=== PATIENT | male | born 1955 | race Caucasian/White ===

== ENCOUNTER 2018-06-05 15:35 | Inpatient (IN) | payer OTHER ==
--- NOTE | 2018-06-05 16:15 | PDOC ---
History of Present Illness - General Chief Complaint: Syncope/Near Syncope Stated Complaint: SYNCOPE Time Seen by Provider: 06/05/18 15:42 History Source: Patient, Family - History of Present Illness Initial Comments: 06/05/18 16:12 62M w/ pmhx of Sjogren's syndrome, lupus, DM, HTN, HLD, RF s/p R kidney transplant (07/15) presents to the ED after 2 syncopal episodes. Pt's also present at bedside to provide history. Pt was at home with physical therapist ( recently had L knee fracture, treated with PT only) and had a syncopal episode during a PT session. Syncopal episode happened while pt was sitting in a chair. noted that pt slumped down in his chair and proceeded to fall onto the ground losing consciousness for 30 seconds. Per , pt woke up after 30 seconds, but lost consciousness again after 5 min for 10 seconds. No witnessed head injury during syncope. Pt does not recall losing consciousness. After second syncopal episode, pt had nausea with 2 episodes of nonbloody, nonbilious vomiting. Admits to chills and severe LLE pain due to knee fracture. Denies headache/dizziness, abdominal pain, tongue biting, urinary/bowel bowel incontinence, blood in urine/stool. BGM taking at home during episode was 130, BP 146/90. Of note, prior to syncopal episodes, pt climbed down flight of stairs during PT session. 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 Recently traveled to the [place] 05/22. Past History - Past Medical History Allergies/Adverse Reactions: Allergies Allergy/AdvReac Type Severity Reaction Status Date / Time Penicillins Allergy Verified 06/05/18 15:53 Home Medications: Ambulatory Orders Amlodipine Besylate 10 mg PO DAILY 06/05/18 Colchicine 0.6 mg PO DAILY 06/05/18 Divalproex [Depakote -] 500 mg PO BID 06/05/18 Ergocalciferol (Vitamin D2) [Vitamin D2] 50,000 unit PO DAILY 06/05/18 Furosemide 40 mg PO BID 06/05/18 Hydralazine HCl 50 mg PO BID 06/05/18 Insulin Aspart [Novolog] 12 unit SQ ASDIR 06/05/18 Insulin Degludec [Tresiba Flextouch U-100] 65 unit SQ HS 06/05/18 Lisinopril 5 mg PO DAILY 06/05/18 Magnesium Oxide [Magnesium] 400 mg PO BID 06/05/18 Metoprolol Tartrate 25 mg PO BID 06/05/18 Mycophenolate Mofetil [Cellcept] 750 mg PO BID 06/05/18 Ranitidine HCl [Zantac] 150 mg PO ASDIR PRN 06/05/18 Simvastatin 20 mg PO DAILY 06/05/18 Sodium Bicarbonate - 10 g PO BID 06/05/18 Tacrolimus [Prograf] 3 mg PO BID 06/05/18 Terazosin HCl [Hytrin] 1 mg PO BID 06/05/18 Anemia: Yes COPD: No Diabetes: Yes HTN: Yes Hypercholesterolemia: Yes Other medical history: schrogrens - Suicide/Smoking/Psychosocial Hx Smoking History: Never smoked Have you smoked in the past 12 months: No Information on smoking cessation initiated: No Hx Alcohol Use: No Drug/Substance Use Hx: No Review of Systems - Review of Systems Able to Perform ROS?: Yes Is the patient limited Mexican proficient: No Constitutional: Yes: Chills. No: Fever, Loss of Appetite HEENTM: No: Recent change in vision Respiratory: No: Cough, Shortness of Breath, SOB with Exertion Cardiac (ROS): No: Chest Pain, Chest Tightness ABD/GI: Yes: Constipated, Nausea, Vomiting. No: Diarrhea, Abdominal cramping Neurological: Yes: Other (lightheadedness). No: Headache *Physical Exam - Vital Signs Last Vital Signs Temp Pulse Resp BP Pulse Ox 97.8 F 61 20 147/103 H 100 06/05/18 15:48 06/05/18 15:48 06/05/18 15:48 06/05/18 15:48 06/05/18 15:48 - Physical Exam General Appearance: Yes: Appropriately Dressed, Apparent Distress (due to L leg pain) HEENT: positive: EOMI, LORENA Respiratory/Chest: positive: Lungs Clear, Normal Breath Sounds. negative: Crackles, Wheezing Cardiovascular: positive: Regular Rhythm, Regular Rate, S1, S2. negative: Murmur Vascular Pulses: Dorsalis-Pedis (R): 2+, Doralis-Pedis (L): 2+ Gastrointestinal/Abdominal: positive: Normal Bowel Sounds, Soft, Other Extremity: positive: Normal Range of Motion (R leg), Tender (generalized tendernesss in LLE), Other (limited ROM in LLE due to pain, L leg brace in place ). negative: Pedal Edema, Swelling Neurologic: positive: log handler II-XII NML intact, Fully Oriented, Alert. negative: Facial Droop ED Treatment Course - LABORATORY CBC & Chemistry Diagram: 06/05/18 16:15 06/05/18 16:22 Medical Decision Making - Medical Decision Making 06/05/18 17:11 Syncopal episode; Ddx includes orthostatic hypotension vs. vasovagal vs. cardiac causes vs. pulm issues vs. PE/DVT vs. infectious process -Will order PTT, PT/INR, cardiac profile, CMP, lactate, Mag, BNP, U/A, CXR, duplex of b/l legs -Pt has been moderately immobile due to knee fracture. Will 06/05/18 17:27 Pt may be orthostatic. BP supine 170/65, sitting 154/71. EKG showed NSR, no ST-T changes, or Q waves. -await CXR and duplex u/s results 06/05/18 18:07 BUN/Cr 55/3.2, Hgb 10.5, Mag 2.5 -Pt is s/p renal transplant (2010), pt states baseline Cr is 1.6, however during recent hospitalization 05/19/18 due to L knee fx, Cr was elevated at 2.8. Spoke with nephr, Dr. Snyder regarding need to transfer to a transplant center for further care. Will call transplant center at [facility] to confirm. 06/05/18 18:59 S/w Kika Roque at transplant center at [facility]. Will call back after speaking to kidney transplant doctor regarding need for transfer to center. Awaiting call back. 06/05/18 19:14 Spoke with transplant center, advised to call pt's assurance senior manager if there is a need to transfer to transplant center for continuation of care since pt's renal transplant was not done at [facility]. Will call Dr. Germain @ [phone]. 06/05/18 19:[address] Valdez, urology fellow of Dr. Germain in [place]. Will d/w attending regarding need to transfer patient to a transplant center. If agreed to admit patient here, will need to order renal u/s, u/a, urine creatinine, urine electrolytes, Prograf level, per request of nephro. Sign out to Dr. Doan. *DC/Admit/Observation/Transfer Diagnosis at time of Disposition: KAMILLA (acute kidney injury), Syncope - Referrals - Patient Instructions - Post Discharge Activity
[2018-06-05] MEDS ORDERED: FAMOTIDINE 20 MG/50 ML IVPB 20 MG/50 ML MG IVPB ONE ×2 (16:23→16:56)
[2018-06-05] MEDS ORDERED: ONDANSETRON 4 MG/2 ML VIAL IVPUSH ONE (16:23)
[2018-06-05] MEDS ORDERED: SODIUM CHLORIDE 0.9% 1000 ML INFUS.BAG IV ONE (16:23)
[2018-06-05] MEDS ORDERED: ACETAMINOPHEN 1000 MG/100 ML VIAL (NON FORMULARY) IVPB ONE (16:25)
[2018-06-05 16:53] LABS: BASO % 0.6 % (0-2.0); HEMATOCRIT 33.1 % (35.4-49); HEMOGLOBIN 10.5 GM/dL (11.7-16.9); LYMPH % 13.8 % (8-40); MCHC 31.8 g/dl (32.0-35.9); MEAN CELL VOLUME 72.2 fl (80-96); MEAN PLT VOLUME 8.5 fl (7.5-11.1); MONO % 6.8 % (3.8-10.2); NEUT % 77.8 % (42.8-82.8); PLATELET COUNT 256 K/MM3 (134-434); RBC 4.58 M/mm3 (4.00-5.60); RDW 17.6 % (11.9-15.9); WHITE BLOOD COUNT 8.7 K/mm3 (4.0-10.0)
[2018-06-05] MEDS ORDERED: ONDANSETRON 4 MG/2 ML VIAL ONE (16:56)
[2018-06-05] MEDS ORDERED: ACETAMINOPHEN INJECTION 100 ML IVPB ONE (16:56)
[2018-06-05 17:15] LABS: INR 1.06 (0.83-1.09); PROTHROMBIN TIME (PATIENT) 12.5 SEC (9.7-13.0)
[2018-06-05 17:17] LABS: ACTIVATED PTT 30.3 SECONDS (25.2-36.5)
--- NOTE | 2018-06-05 17:18 | PDOC ---
Attending Attestation - HPI HPI: 06/05/18 17:33 The patient is a 62-year-old male, with a past medical history of anemia, DM, HTN, HLD, and sjogren's, recent knee fracture, who presents to the ED s/p syncope x2 with an episode of vomiting while at physical therapy today. Patient was sent to the ED for further evaluation. The patient denies any fever, chills, diarrhea, constipation, or abdominal pain. Denies chest pain, shortness of breath, headache and dizziness. Denies dysuria, frequency, urgency, hesitancy, and hematuria. - Physicial Exam PE: 06/05/18 17:34 Constitutional: Awake, alert, oriented. No acute distress. Head: Normocephalic. Atraumatic Eyes: + Known nystagmus. PERRL. EOMI. Conjunctivae are not pale. ENT: Mucous membranes are moist and intact. Posterior pharynx without exudates or erythema. Uvula midline. Neck: Supple. Full ROM. No lymphadenopathy. Cardiovascular: Regular rate. Regular rhythm. S1, S2 regular. Distal pulses are 2+ and symmetric. Pulmonary/Chest: No evidence of respiratory distress. Clear to auscultation bilaterally No wheezing, rales or rhonchi. Abdominal: + Incision on the right lower quadrant from renal transplant. Soft and non-distended. There is no tenderness. No rebound, guarding or rigidity. No organomegaly. No palpable masses. Good bowel sounds. Back: No CVA tenderness. Musculoskeletal: + straight knee brace on the left lower extremity, pain throughout entire left lower extremity. Full ROM on right lower extremity. No edema. No cyanosis. No clubbing. Nocalf tenderness. Radial/pedal pulses are intact and 2+ bilaterally Skin: + Small abrasion over knee cap over recent fracture, no swelling, no warmth. Skin is dry. No petechiae. No purpura. Neurological: Alert and oriented to person, place, and time. Cranial nerves II -XII are grossly intact. Normal speech. Strength is grossly symmetric. No sensory deficits. Psychiatric: Good eye contact. Normal interaction, affect and behavior. <Moira Adams - Last Filed: 06/05/18 17:54> - Resident Resident Name: Sherry Reid - ED Attending Attestation I have performed the following: I have examined & evaluated the patient, The case was reviewed & discussed with the resident, I agree w/resident's findings & plan, Exceptions are as noted - Medical Decision Making 06/05/18 17:12 I, Dr. Guadalupe Schafer DO, attest that this document has been prepared under my direction and personally reviewed by me in its entirety. I further attest, that it accurately reflects all work, treatment, procedures and medical decision -making performed by me. 06/05/18 17:12 a/p: 62yo male with syncope x 2 today -pt c/o feeling dizzy and nauseated prior to syncope x 2 -pt with recent patella fracture on the LLE -pt denies cp/sob -hx of renal transplant in the past -hx of Dm and HTN -pt did not take his BP meds today -pt with acute pain in LE -sensation intact -pt is orthostatic on vitals -will check labs, ekg, cxr, trop, LE duplex ultrasound -will hydrate and re-eval 06/05/18 19:16 pt with kamilla with hx of transplant kidney -resident has discussed with Dr. Snyder who recommends discussing with renal transplant -call placed to [facility] who recommends discussing with the patients private environmental educator 06/06/18 00:32 pt will be admitted and consult to nephrology if Cr and KAMILLA does not improve in 2-3 days, then possible transfer to [facility] for transplant nephrology eval as discussed with the patients environmental educator 06/06/18 00:33 <Guadalupe Schafer - Last Filed: 06/06/18 00:34> Heart Score/ECG Review - ECG Intrepretation Comment:: 06/05/18 17:12 sinus at 67, nl axis, nl interval, no acute st/t wave findings <Guadalupe Schafer - Last Filed: 06/06/18 00:34> Attestations - Attestations 06/05/18 17:34 Documentation prepared by Moira Adams, acting as medical psychotherapist for Guadalupe Schafer DO <Moira Adams - Last Filed: 06/05/18 17:54>
[2018-06-05 17:19] LABS: ALBUMIN 3.4 g/dl (3.4-5.0); ALK PHOS 90 U/L (45-117); ANION GAP 8 MMOL/L (8-16); BILIRUBIN,TOTAL 0.3 mg/dL (0.2-1); BLOOD UREA NITROGEN 55 mg/dL (7-18); CALCIUM 9.5 mg/dL (8.5-10.1); CHLORIDE 111 mmol/L (98-107); CO2 20 mmol/L (21-32); CREATININE 3.2 mg/dL (0.55-1.3); GLUCOSE,RANDOM 121 mg/dL (74-106); MAGNESIUM 2.5 mg/dL (1.8-2.4); POTASSIUM 4.6 mmol/L (3.5-5.1); SGOT/AST 11 U/L (15-37); SGPT/ALT 13 U/L (13-61); SODIUM 139 mmol/L (136-145); TOT PROT 7.3 g/dl (6.4-8.2)
--- NOTE | 2018-06-05 19:58 | PDOC ---
*Physical Exam - Vital Signs Last Vital Signs Temp Pulse Resp BP Pulse Ox 97.8 F 61 20 147/103 H 100 06/05/18 15:48 06/05/18 15:48 06/05/18 15:48 06/05/18 15:48 06/05/18 15:48 - Physical Exam Comments: 06/05/18 21:19 Patient signed out to me by the day team. Briefly, this is a 62 year old male with, Sjogren's syndrome, lupus, DM, HTN, HLD, RF s/p R kidney transplant (07/15) after syncopal episode with acute kidney injury upon admission. Baseline creatinine 1.6, today 3.2. General Appearance: Yes: Appropriately Dressed Respiratory/Chest: positive: Lungs Clear, Normal Breath Sounds. negative: Crackles, Rhonchi, Stridor, Wheezing Cardiovascular: positive: Regular Rhythm, Regular Rate, S1, S2 Gastrointestinal/Abdominal: positive: Normal Bowel Sounds, Flat. negative: Tender Musculoskeletal: positive: Normal Inspection. negative: CVA Tenderness ED Treatment Course - LABORATORY CBC & Chemistry Diagram: 06/05/18 16:15 06/05/18 16:22 - ADDITIONAL ORDERS Additional order review: Laboratory Results 06/05/18 06/05/18 06/05/18 16:22 16:22 16:22 PT with INR 12.50 INR 1.06 PTT (Actin FS) 30.3 Sodium 139 Potassium 4.6 Chloride 111 H Carbon Dioxide 20 L Anion Gap 8 BUN 55 H Creatinine 3.2 H Creat Clearance w eGFR 19.91 Random Glucose 121 H Lactic Acid 1.6 Calcium 9.5 Magnesium 2.5 H Total Bilirubin 0.3 AST 11 L ALT 13 Alkaline Phosphatase 90 Creatine Kinase 39 Troponin I < 0.02 B-Natriuretic Peptide Total Protein 7.3 Albumin 3.4 06/05/18 16:15 PT with INR INR PTT (Actin FS) Sodium Potassium Chloride Carbon Dioxide Anion Gap BUN Creatinine Creat Clearance w eGFR Random Glucose Lactic Acid Calcium Magnesium Total Bilirubin AST ALT Alkaline Phosphatase Creatine Kinase Troponin I B-Natriuretic Peptide 756.1 H Total Protein Albumin 06/05/18 16:15 RBC 4.58 MCV 72.2 L MCHC 31.8 L RDW 17.6 H MPV 8.5 Neutrophils % 77.8 Lymphocytes % 13.8 Monocytes % 6.8 Eosinophils % 1.0 Basophils % 0.6 - Medications Given in the ED: ED Medications Discontinued Medications Generic Name Dose Route Start Last Admin Trade Name Shell PRN Reason Stop Dose Admin Acetaminophen 1,000 mg 06/05/18 16:25 06/05/18 17:05 Ofirmev Injection - IVPB 06/05/18 16:26 1,000 mg ONCE ONE Administration Famotidine/Sodium Chloride 20 mg in 50 mls @ 100 mls/hr 06/05/18 16:23 17:14 Pepcid 20 Mg Premixed Ivpb - IVPB 06/05/18 16:52 100 mls/hr ONCE ONE Administration Ondansetron HCl 4 mg 06/05/18 16:23 06/05/18 17:05 Zofran Injection IVPUSH 06/05/18 16:24 4 mg ONCE ONE Administration Sodium Chloride 1,000 ml 06/05/18 16:23 06/05/18 17:05 Normal Saline - IV 06/05/18 16:24 1,000 ml ONCE ONE Administration Medical Decision Making - Medical Decision Making 06/05/18 21:24 This is a 62 year old male with history of right renal transplant 2010, recent fracture of hi s left knee, who presents with syncope and has acute kidney injury[facility] as per Dr. Valdez, a nephrology fellow, patient should be medically treated here with IVF, follow up sonograms and labs, and if the patient does not improve within 24-48hrs, then they will accept patient under Dr. Stewart. Continue syncope workup; KAMILLA; Admit to hospitalist *DC/Admit/Observation/Transfer Diagnosis at time of Disposition: KAMILLA (acute kidney injury), Syncope - Discharge Dispostion Decision to Admit order: Yes - Referrals - Patient Instructions - Post Discharge Activity
[2018-06-05] MEDS ORDERED: SODIUM CHLORIDE 1,000 ML IV SCH (22:45)
[2018-06-05] MEDS ORDERED: MORPHINE SULFATE 2 MG/ML VIAL IVPUSH ONE (23:39)
[2018-06-06] MEDS ORDERED: MORPHINE SULFATE 2 MG/ML VIAL ONE (00:28)
[2018-06-06 01:18] LABS: URINE APPEARANCE CLEAR; URINE BILIRUBIN NEGATIVE (<2.0 mg/dL); URINE COLOR LTYELLOW; URINE GLUCOSE (UA) NEGATIVE (NEGATIVE); URINE KETONE NEGATIVE (NEGATIVE); URINE LEUK ESTERASE NEGATIVE (NEGATIVE); URINE NITRITE NEGATIVE (NEGATIVE); URINE PROTEIN 2+ (NEGATIVE); URINE UROBILINOGEN NEGATIVE mg/dL (0.2-1.0)
[2018-06-06 01:29] LABS: EPI CELLS RARE /HPF (FEW); URINE MUCUS RARE
[2018-06-06] MEDS ORDERED: RANITIDINE HCL 150 MG TABLET (FP) PO PRN (02:58)
--- NOTE | 2018-06-06 03:13 | PN ---
Teaching Attending Note Name of Resident: Sonali Stewart ATTENDING PHYSICIAN STATEMENT I saw and evaluated the patient. I reviewed the resident's note and discussed the case with the resident. I agree with the resident's findings and plan as documented. SUBJECTIVE: Patient seen and examined; he is a 62 y/o AAM with a complex PMH of Sjogren's syndrome, Lupus, ESRD s/p renal transplant 2010, recent patellar fracture in immobilizer, HTN, HLD, DM. He is hemodynamically stable and afebrile. He has no new complaints aside from knee pain. He comes to the ER via EMS due to fall when working with PT. He was positive for orthostatics while in the ER. He was 'working too hard' per the and syncopized in his chair after exertion. He was noted to have brief LOC without any stigmata of seizures and then return to normal state, though he did have an episode of vomitting after. He has no chest pain, no SOB, no dizziness. No rotational movement. He has had poor PO intake the last several days. For further discussion of the history surrounding this admission please refer to resident note. This is the first time he is documented as being at this facility. I have asked the team to obtain all his old records. Originally, due to the elevated Cr the patient was to be transferred to [facility]. They were called by ER who recommended calling patient's private antique collector. When they were reached (Dr. Germain, ) it was determined by ER and other facility that patient should be admitted to the medicine service with nephrology consult and transfered to a renal xp care facility if no improvement. Patient and are aware and he will be brought to the medicine service. 10 sys ROS done and negative aside from HPI Socially lives with , needs some current assistance with IADLs given his knee problem but is independent otherwise, no alcohol or drug abuse. FH asked and noncontributory PMH and PSH per chart OBJECTIVE: VSS, Labs and Imaging reviewed. Positive orthostatic VS. NAD, resting in bed, no complaints LLE in immobilizer with good pulses and thusly restricted movement; pain to palpation over patellar area NT ND +BS RRR s1/2 no mgr Lungs CTAB with sym exp CN2-12 wnl; couldn't check gait. Motor and sensory are intact. No FNDs. Normal behavior and normal affect Labs reviewed; significant for KAMILLA with Cr. elevated to 3.2 ASSESSMENT AND PLAN: Mr. Woo is a 62 y/o AAM presenting with syncope and knee pain found to have an KAMILLA. He is hemodynamically stable and febrile but does have positive orthostatics. We will work up the cause of his syncope and treat his KAMILLA; if his KAMILLA does not resolve or meaningfully improve in the next 24-48 hours we will have to transfer him to his renal care facility. 1) Acute Kidney Injury on CKD-III (stated) in the setting of ESRD s/p renal XP -His Cr is elevated to 3.2 today and his baseline, per the patient, is 1.6. As discussed in HPI we will admit to medicine with a nephrology consultation. We will monitor him on the floor and empirically hydrate with NS @100 and monitor BMP and UOP -If worsening of renal function will go ahead and discuss emergent xf to [facility] -Hold all nephrotoxic medications (lasix, lisinopril), continue HCO3 tabs -Obtain FeUrea -Nephrology aware of patient; appreciate their input. 2) Syncope -Patient had syncopal episodes at home as documented; +orthostatics so hydrating and rechecking orthostatics in AM -Slightly elevated Well's score (1.5) which is low risk for PE but given his rheum history and recent immobilization will check a D-dimer; negative R leg DVT ; difficult to complete study per the comments but likely negative left leg. Given the history can monitor clinically but if any suspicion persists for DVT check other tests. -Checking an echo, checking dopplers (as the patient has risk factors for sclerosis as well as cardiogenic syncope) -Monitor on telemetry -Neuro checks, serial neuro exams 3) S/P renal transplant -See #1 as this relates to his KAMILLA -Continue his home immunosuppressive regimine and continue with nephrology monitoring -Seen on US on right side 4) Diabetes Mellitus -Hold PO medications, continue home insulin and add SSI 5) Sjogrens, Lupus -Stated history of rheum conditions, no old records -Obtaining old records, not in any acute flair but will monitor -Ensure med list up to date 6) HTN -Hold nephrotoxic BP meds, reintroduce home medications when clinically appropriate -<160 is goal; use PRN management 7) HLD -Nonacute, no change in management 8) Bladder wall thickening seen on US -Could relate to chronic obstruction vs. acute vs. chronic cystitis -No urinary sx, no WBC or fever. UA is negative for UTI. Post void on bladder was <100 -Monitor clinically 9) Cardiomegaly -Appreciated on CXR -Checking echo for #2 which will also help describe this. 10) Obesity (BMI 35) -Nanosystems Engineer when clinically appropriate Full Code Consultants: Nephrology Dispo: Keep inpatient vs. XF to [facility] depending on trajectory of renal function.
[2018-06-06] MEDS: INSULIN ASPART 12 UNIT SQ SCH (03:15)
--- NOTE | 2018-06-06 03:54 | HP ---
CHIEF COMPLAINT: syncope HISTORY OF PRESENT ILLNESS: Patient is a 62 y/o male with a history of sjrogens, lupus, DM, HTN, HLD, RF s/ p renal transplant in 2010 who presents for syncope. On May 19 patient was in an accident and fractured his patella. Yesterday he was seeing PT to help him learn how to walk around his house on crutches with his leg immobilized. He took half a percocet earlier in preperation for the pain. Patient states he also had breakfast. He was tiring of walking around on the crutches, so he went to sit down where he syncopized on the floor. After about a minute he regained consciousness and had an episode of NBNB vomiting. He does not recall any of this happening, they checked his blood sugar after the event and it was found to be 130. Patient has had one syncopal episode in the past but was found to be hypoglycemic at the time. Patient states that since it is difficult to walk in his house he has been drinking less fluids so that he doesn 't have to go to the bathroom. In the ED patient was found to have positive orthostatics. Patient had a renal transplant due to " uncontrolled diabetes". He reports taking his medication daily. Patient reports he still feels nauseous but is also hungry. Patient denies chest pain, denies the room is spinning, shortness of breath, or diarrhea. ED found patients cr to be elevated at 3.2. They spoke with patients frame straightener who said that if the creatine does not resolve within 24-48 hours he should be transferred to [facility]. ER course was notable for: (1) (2) (3) Recent Travel: PAST MEDICAL HISTORY: sjrogens, lupus, DM, HTN, HLD, RF s/p renal transplant PAST SURGICAL HISTORY: R knee replacement Social History: Smoking:denies Alcohol: Drugs: Family History: Allergies Penicillins Allergy (Verified 06/05/18 15:53) HOME MEDICATIONS: Home Medications Medication Instructions Recorded Amlodipine Besylate 10 mg PO DAILY 06/05/18 Colchicine 0.6 mg PO DAILY 06/05/18 Divalproex [Depakote -] 500 mg PO BID 06/05/18 Ergocalciferol (Vitamin D2) 50,000 unit PO DAILY 06/05/18 [Vitamin D2] Furosemide 40 mg PO BID 06/05/18 Hydralazine HCl 50 mg PO BID 06/05/18 Insulin Aspart [Novolog] 12 unit SQ ASDIR 06/05/18 Insulin Degludec [Tresiba 65 unit SQ HS 06/05/18 Flextouch U-100] Lisinopril 5 mg PO DAILY 06/05/18 Magnesium Oxide [Magnesium] 400 mg PO BID 06/05/18 Metoprolol Tartrate 25 mg PO BID 06/05/18 Mycophenolate Mofetil [Cellcept] 750 mg PO BID 06/05/18 Ranitidine HCl [Zantac] 150 mg PO ASDIR PRN 06/05/18 Simvastatin 20 mg PO DAILY 06/05/18 Sodium Bicarbonate - 10 g PO BID 06/05/18 Tacrolimus [Prograf] 3 mg PO BID 06/05/18 Terazosin HCl [Hytrin] 1 mg PO BID 06/05/18 REVIEW OF SYSTEMS CONSTITUTIONAL: Absent: fever, chills, diaphoresis, generalized weakness, malaise, loss of appetite, weight change HEENT: Absent: rhinorrhea, nasal congestion, throat pain, throat swelling, difficulty swallowing, mouth swelling, ear pain, eye pain, visual changes CARDIOVASCULAR: Absent: chest pain, syncope, palpitations, irregular heart rate, lightheadedness , peripheral edema RESPIRATORY: Absent: cough, shortness of breath, dyspnea with exertion, orthopnea, wheezing, stridor, hemoptysis GASTROINTESTINAL:nausea Absent: abdominal pain, abdominal distension, vomiting, diarrhea, constipation , melena, hematochezia GENITOURINARY: Absent: dysuria, frequency, urgency, hesitancy, hematuria, flank pain, genital pain MUSCULOSKELETAL: R knee pain Absent: myalgia, arthralgia, joint swelling, back pain, neck pain SKIN: Absent: rash, itching, pallor HEMATOLOGIC/IMMUNOLOGIC: Absent: easy bleeding, easy bruising, lymphadenopathy, frequent infections ENDOCRINE: Absent: unexplained weight gain, unexplained weight loss, heat intolerance, cold intolerance NEUROLOGIC: dizziness Absent: headache, focal weakness or paresthesias, unsteady gait, seizure, mental status changes, bladder or bowel incontinence PSYCHIATRIC: Absent: anxiety, depression, suicidal or homicidal ideation, hallucinations. PHYSICAL EXAMINATION Vital Signs - 24 hr 06/05/18 15:48 Temperature 97.8 F Pulse Rate 61 Respiratory 20 Rate Blood Pressure 147/103 H O2 Sat by Pulse 100 Oximetry (%) GENERAL: Awake, alert, and fully oriented, in no acute distress. HEAD: Normal with no signs of trauma. EYES: Pupils equal, round and reactive to light, extraocular movements intact, sclera anicteric, conjunctiva clear. EARS, NOSE, THROAT: Moist mucous membranes. LUNGS: Breath sounds equal, clear to auscultation bilaterally. No wheezes, and no crackles. No accessory muscle use. HEART: Regular rate and rhythm, normal S1 and S2 without murmur, rub or gallop. ABDOMEN: Soft, nontender, not distended, normoactive bowel sounds, no guarding, no rebound, no masses. No CVA tenderness MUSCULOSKELETAL:R knee immobilized, tender to touch LOWER EXTREMITIES: 2+ pulses, warm, well-perfused. No calf tenderness. No peripheral edema. NEUROLOGICAL: Cranial nerves II-XII intact. Normal speech. PSYCHIATRIC: Cooperative. Good eye contact. Appropriate mood and affect. SKIN: Warm, dry, normal turgor, no rashes or lesions noted, normal capillary refill. Laboratory Results - last 24 hr CBC, BMP 06/05/18 16:15 06/05/18 16:22 ASSESSMENT/PLAN: Patient is a 62 y/o male with a history of sjrogens, lupus, DM, HTN, HLD, RF s/ p renal transplant in 2010 who presents for syncope. #syncope, likely orthostatic 2/2 to dehydration - + orthostatics - f/u carotid dopplers for stenosis - f/u echo - monitor on tele - neuro checks, serial neuro exams #KAMILLA on CKD III - continue fluids, NS @ 100 - hold furosemide and lisinopril - monitor creatinine - baseline 1.6 - f/u Dr. Snyder, ED spoke with him overnight - f/u FUrea, patient home medications is furosemide #R patellar fracture - 4 mg of morphie given x 1 - f/u PT - Wells score 1.5 - no DVT - f/u DDimer, increased risk of DVT with rheumotologc history #s/p Renal transplant - continue home medications, meds verified with patients - patient follows with frame straightener at [facility] #DM - continue SS - insulin novolog 12 units with meals - BGM achs #HTN - nephrotoxic agents held, hydralazine 50 mg BID continued Visit type - Emergency Visit Emergency Visit: Yes ED Registration Date: 06/05/18 Care time: The patient presented to the Emergency Department on the above date and was hospitalized for further evaluation of their emergent condition. - New Patient This patient is new to me today: Yes Date on this admission: 06/06/18 - Critical Care Critical Care patient: No
[2018-06-06] MEDS ORDERED: HEPARIN NA (PORCINE) 5,000 UNITS/ML 1ML VIAL ONE (06:02)
[2018-06-06] MEDS: HEPARIN NA (PORCINE) 5,000 UNITS/ML 1ML VIAL SQ SCH ×3 (06:10→23:21)
[2018-06-06] MEDS: INSULIN SLIDING SCALE (NOVOLOG) 1 VIAL SQ SCH ×4 (06:30→23:20)
--- NOTE | 2018-06-06 07:31 | PN ---
Progress Note, Physician Chief Complaint: C/O Left knee pain History of Present Illness: 62 y/o male with a history of sjrogens, lupus, DM, HTN, HLD, RF s/p renal transplant in 2010 who presents for syncope. On May 19 patient was in an accident and fractured his patella evluted at [facility] discharged after evaluation by Orthopedics surgery for out patient F/U with Dr Pineda.. Yesterday he was seeing PT to help him learn how to walk around his house on crutches with his leg immobilized. He took half a percocet earlier in preperation for the pain. Patient states he also had breakfast. He was tiring of walking around on the crutches, so he went to sit down where he syncopized on the floor. - Current Medication List Current Medications: Active Medications Acetaminophen (Tylenol -) 650 mg PO Q6H PRN PRN Reason: PAIN LEVEL 6-10 Atorvastatin Calcium (Lipitor -) 10 mg PO HS [facility] Divalproex Sodium (Depakote -) 500 mg PO BID [facility] Ergocalciferol (Drisdol -) 50,000 unit PO DAILY [facility] Heparin Sodium (Porcine) (Heparin -) 5,000 unit SQ TID [facility] Last Admin: 06/06/18 06:10 Dose: 5,000 unit Hydralazine HCl (Apresoline -) 50 mg PO BID [facility] Sodium Chloride (Normal Saline -) 1,000 mls @ 100 mls/hr IV ASDIR [facility] Last Admin: 06/05/18 22:45 Dose: 100 mls/hr Insulin Aspart (Novolog Vial Sliding Scale -) 1 vial SQ ACHS [facility]; Protocol Last Admin: 06/06/18 06:30 Dose: Not Given Magnesium Oxide (Mag-Ox -) 400 mg PO BID [facility] Metoprolol Tartrate (Lopressor -) 25 mg PO BID [facility] Mycophenolate Mofetil (Cellcept -) 750 mg PO BID [facility] Non-Formulary Medication (Insulin Aspart [Novolog]) 12 unit SQ ASDIR [facility] Last Admin: 06/06/18 03:15 Dose: 12 unit Ranitidine HCl (Zantac -) 150 mg PO ASDIR PRN PRN Reason: acid reflux Tacrolimus (Prograf) 3 mg PO BID [facility] Terazosin HCl (Hytrin -) 1 mg PO BID [facility] - Objective Vital Signs: Vital Signs Temperature 98.0 F 06/06/18 03:20 Pulse Rate 62 06/06/18 03:20 Respiratory Rate 18 06/06/18 03:20 Blood Pressure 157/62 06/06/18 03:20 O2 Sat by Pulse Oximetry (%) 99 06/06/18 03:20 Middle aged man not in distress c/o Left knee pain HEENT: mm moist, no anemia, PERRLA EOMI NECK: No JVd No Bruit CHEST: CTA B/L CVS: s1S2 R no m/g/r ABD: No distention non tender Bs + EXT: Left knee in immobilized. Pulses +2 [employer]LYST: AOx3 non focal intact motor and sensory functions. Labs: CBC, BMP 06/05/18 16:15 06/05/18 16:22 INR, PTT INR 1.06 (0.83-1.09) 06/05/18 16:22 - ....Imaging Cat Scan: Report Reviewed (No acute changes) Ultrasound: Report Reviewed (Carotid; atherosclerotic chnages LE: No DVT Renal; Rt sided renal trasplanttaion) EKG: Report Reviewed (NSr at [address] chnages) Problem List - Problems (1) Syncope Assessment/Plan: Most likely combination of orthostatic with neurocardiogenic secondary to pain , normal EKG no chest pain will F/U ECHO , fall precautions PT evaluation after hydration. Code(s): R55 - SYNCOPE AND COLLAPSE (2) H/O kidney transplant Assessment/Plan: Cont all Home modes F/U Nephrology recommondations Code(s): Z94.0 - KIDNEY TRANSPLANT STATUS (3) HTN (hypertension) Assessment/Plan: Well controlled cont home meds Code(s): I10 - ESSENTIAL (PRIMARY) HYPERTENSION (4) Lupus Assessment/Plan: Not on any medicatins Code(s): L93.0 - DISCOID LUPUS ERYTHEMATOSUS (5) Anemia Assessment/Plan: chronic stable Code(s): D64.9 - ANEMIA, UNSPECIFIED (6) CKD (chronic kidney disease) Assessment/Plan: post transplant CKD last Sr Creat 3.[address] [facility] 2wks ago level stayed Code(s): N18.9 - CHRONIC KIDNEY DISEASE, UNSPECIFIED (7) KAMILLA (acute kidney injury) Assessment/Plan: Top on CKD due to dehydration F/U BMP after IV hydration Code(s): N17.9 - ACUTE KIDNEY FAILURE, UNSPECIFIED (8) Dehydration Assessment/Plan: F/U BMP after IV Hydration Code(s): E86.0 - DEHYDRATION (9) T2DM (type 2 diabetes mellitus) Assessment/Plan: F/U Accucheck resume Home meds optimize glycemic control Code(s): E11.9 - TYPE 2 DIABETES MELLITUS WITHOUT COMPLICATIONS (10) D-dimer, elevated Assessment/Plan: Present with syncope D Dimmers highly elevated , Left LE is immobilized , no c/ o chest pain or SOB, Left LE Doppler -ve for DVT patient has H/O Lupus, recently stopped Eliquis 3 months ago 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
[2018-06-06] MEDS ORDERED: hydrALAZINE HCL 50 MG TABLET (FP) PO SCH (10:00)
[2018-06-06] MEDS ORDERED: MAGNESIUM OXIDE 400 MG TABLET (FP) PO SCH (10:00)
[2018-06-06 10:49] LABS: ALBUMIN 3.2 g/dl (3.4-5.0); ALK PHOS 88 U/L (45-117); ANION GAP 11 MMOL/L (8-16); BILIRUBIN,TOTAL 0.3 mg/dL (0.2-1); BLOOD UREA NITROGEN 56 mg/dL (7-18); CALCIUM 8.8 mg/dL (8.5-10.1); CHLORIDE 112 mmol/L (98-107); CO2 21 mmol/L (21-32); CREATININE 3.1 mg/dL (0.55-1.3); GLUCOSE,RANDOM 125 mg/dL (74-106); POTASSIUM 4.7 mmol/L (3.5-5.1); SGOT/AST 11 U/L (15-37); SGPT/ALT 14 U/L (13-61); SODIUM 143 mmol/L (136-145); TOT PROT 6.8 g/dl (6.4-8.2)
--- NOTE | 2018-06-06 10:52 | EKG ---
Test Reason : Blood Pressure : / mmHG Vent. Rate : 067 BPM Atrial Rate : 067 BPM P-R Int : 198 ms QRS Dur : 092 ms QT Int : 418 ms P-R-T Axes : 061 069 073 degrees QTc Int : 441 ms NORMAL SINUS RHYTHM NORMAL ECG NO PREVIOUS ECGS AVAILABLE Confirmed by DEAN DEJESUS MD ([id number]) on 06/06/2018 10:51:33 AM Referred By: Confirmed By:DEAN DEJESUS MD
[2018-06-06 11:07] LABS: BASO % 0.6 % (0-2.0); EOS % 1.9 % (0-4.5); HEMATOCRIT 30.3 % (35.4-49); HEMOGLOBIN 9.7 GM/dL (11.7-16.9); LYMPH % 21.3 % (8-40); MCH 23.1 pg (25.7-33.7); MEAN CELL VOLUME 72.2 fl (80-96); MEAN PLT VOLUME 8.8 fl (7.5-11.1); MONO % 7.8 % (3.8-10.2); NEUT % 68.4 % (42.8-82.8); PLATELET COUNT 241 K/MM3 (134-434); RDW 18.1 % (11.9-15.9); WHITE BLOOD COUNT 6.6 K/mm3 (4.0-10.0)
[2018-06-06] MEDS: hydrALAZINE HCL 50 MG TABLET (FP) PO SCH ×2 (11:29→23:21)
[2018-06-06] MEDS: MYCOPHENOLATE MOFETIL 250 MG CAPSULE PO SCH ×2 (11:30→23:24)
[2018-06-06] MEDS: DIVALPROEX SODIUM 500 MG TABLET E.C. PO SCH ×2 (11:30→23:23)
[2018-06-06] MEDS: METOPROLOL TARTRATE 25 MG TABLET (FP) PO SCH ×2 (11:30→23:34)
[2018-06-06] MEDS: TERAZOSIN HCL 1 MG CAPSULE PO SCH ×2 (11:30→23:24)
[2018-06-06] MEDS: TACROLIMUS ANHYDROUS 1 MG CAPSULE PO SCH ×2 (11:31→23:23)
--- NOTE | 2018-06-06 11:38 | CONSULT ---
Consultation: CONSULT REQUEST: Nephrology Resident Note HISTORY OF PRESENT ILLNESS: 62yo M with history of Lupus, DM, renal failure s/p renal transplant in 2010 in [place] with living donor kidney who presented to the ER after a syncopal episode during his physical therapy. He reports losing consciousness after walking around on crutches. He endorsed one episode of NB/NB vomiting with complete regaining of consciousness post-syncopal event. We were asked to evaluate this pt due to worsening kidney function in a renal transplant pt. Pt reports taking his immunosuppressants as directed (Cellcept, Prograf, and Hytrin ). He states his normal Cr is usually very labile between 1.5 - 3.0 and is followed at [facility] for his outpatient nephrology. Pt has had multiple kidney biopsies due to his lupus, however he reports none of them have been remarkable. He denies any difficulties urinating or any current abdominal pain at this point. PMHx: Sjorgen's syndrome Lupus DM HTN HLD Renal failure s/p renal transplant (2010; [facility]; living donor) PSHx: R Knee replacement SoHx Tobacco: None Alcohol: None Drugs: None Independent in ADLs previously --> now in PT for walking purpose s/p knee replacement; lives with Allergies: Pencillin REVIEW OF SYSTEMS: CONSTITUTIONAL: Absent: fever, chills, diaphoresis, generalized weakness, malaise, loss of appetite, weight change HEENT: Absent: rhinorrhea, nasal congestion, throat pain, throat swelling, difficulty swallowing, mouth swelling, ear pain, eye pain, visual changes CARDIOVASCULAR: Absent: chest pain, syncope, palpitations, irregular heart rate, lightheadedness , peripheral edema RESPIRATORY: Absent: cough, shortness of breath, dyspnea with exertion, orthopnea, wheezing GASTROINTESTINAL: Absent: abdominal pain, abdominal distension, nausea, vomiting, diarrhea, constipation GENITOURINARY: Absent: dysuria, frequency, urgency, hesitancy, hematuria, flank pain MUSCULOSKELETAL: Present: R lower extremity pain Absent: joint swelling, back pain, neck pain SKIN: Absent: rash, itching, pallor NEUROLOGIC: Absent: headache, focal weakness or paresthesias, dizziness, unsteady gait, seizure, mental status changes, bladder or bowel incontinence PSYCHIATRIC: Absent: anxiety, depression PHYSICAL EXAMINATION Vital Signs - 24 hr 06/05/18 06/05/18 06/06/18 15:48 19:15 00:20 Temperature 97.8 F 97.9 F 97.9 F Pulse Rate 61 Pulse Rate [ 72 72 Left Radial] Respiratory 20 18 18 Rate Blood Pressure 147/103 H Blood Pressure 162/70 158/68 [Left Arm] O2 Sat by Pulse 100 98 97 Oximetry (%) 06/06/18 03:20 Temperature 98.0 F Pulse Rate Pulse Rate [ 62 Left Radial] Respiratory 18 Rate Blood Pressure Blood Pressure 157/62 [Left Arm] O2 Sat by Pulse 99 Oximetry (%) GENERAL: NAD, awake, alert, and fully oriented, laying in bed with at bedside HEENT: KIANA, sclera anicteric, MMM NECK: No JVD LUNGS: Breath sounds equal, clear to auscultation bilaterally. No wheezes, and no crackles. No accessory muscle use. HEART: Regular rate and rhythm, normal S1 and S2 without murmur, rub or gallop. ABDOMEN: Soft, RLQ scar without abnormalities, nontender, nondistendend, no guarding, no masses appreciated. MUSCULOSKELETAL: No CVA tenderness. EXTREMITIES: 2+ DP pulses, warm, well-perfused. No peripheral edema. NEUROLOGICAL: Nonfocal exam. Normal speech. Gait not observed PSYCHIATRIC: Cooperative. Good eye contact. Appropriate mood and affect. SKIN: Warm, dry, no rashes Laboratory Results - last 24 hr 06/05/18 06/05/18 06/05/18 00:29 00:29 00:29 WBC RBC Hgb Hct MCV MCH MCHC RDW Plt Count MPV Absolute Neuts (auto) Neutrophils % Lymphocytes % Monocytes % Eosinophils % Basophils % Nucleated RBC % PT with INR INR PTT (Actin FS) D-Dimer Sodium Potassium Chloride Carbon Dioxide Anion Gap BUN Creatinine Creat Clearance w eGFR Random Glucose Lactic Acid Calcium Magnesium Total Bilirubin AST ALT Alkaline Phosphatase Creatine Kinase Troponin I B-Natriuretic Peptide Total Protein Albumin Urine Color Ltyellow Urine Appearance Clear Urine pH 5.0 Ur Specific [place] 1.012 Urine Protein 2+ H Urine Glucose (UA) Negative Urine Ketones Negative Urine Blood Negative Urine Nitrite Negative Urine Bilirubin Negative Urine Urobilinogen Negative Ur Leukocyte Esterase Negative Urine WBC (Auto) <1 Urine RBC (Auto) None Ur Epithelial Cells Rare Urine Mucus Rare Ur Random Sodium 48 Ur Random Potassium 39.0 Ur Random Chloride 58 L Ur Random Urea Nitrogn Urine Creatinine 115.0 H 1106/06/18 06/06/18 09:43 09:43 09:43 WBC 6.6 RBC 4.20 Hgb 9.7 L Hct 30.3 L MCV 72.2 L MCH 23.1 L MCHC 32.0 RDW 18.1 H Plt Count 241 MPV 8.8 Absolute Neuts (auto) 4.5 Neutrophils % 68.4 Lymphocytes % 21.3 D Monocytes % 7.8 Eosinophils % 1.9 D Basophils % 0.6 Nucleated RBC % 0 PT with INR INR PTT (Actin FS) D-Dimer 4186 H Sodium 143 Potassium 4.7 Chloride 112 H Carbon Dioxide 21 Anion Gap 11 BUN 56 H Creatinine 3.1 H Creat Clearance w eGFR 20.66 Random Glucose 125 H Lactic Acid Calcium 8.8 Magnesium Total Bilirubin 0.3 AST 11 L ALT 14 Alkaline Phosphatase 88 Creatine Kinase Troponin I B-Natriuretic Peptide Total Protein 6.8 Albumin 3.2 L Urine Color Urine Appearance Urine pH Ur Specific [place] Urine Protein Urine Glucose (UA) Urine Ketones Urine Blood Urine Nitrite Urine Bilirubin Urine Urobilinogen Ur Leukocyte Esterase Urine WBC (Auto) Urine RBC (Auto) Ur Epithelial Cells Urine Mucus Ur Random Sodium Ur Random Potassium Ur Random Chloride Ur Random Urea Nitrogn Urine Creatinine Active Medications Generic Name Dose Route Start Last Admin Trade Name Freq PRN Reason Stop Dose Admin Acetaminophen 650 mg 06/05/18 22:43 Tylenol - PO Q6H PRN PAIN LEVEL 6-10 Atorvastatin Calcium 10 mg 06/06/18 22:00 Lipitor - PO HS SARY Divalproex Sodium 500 mg 06/06/18 10:00 Depakote - PO BID S[facility] Ergocalciferol 50,000 unit 06/06/18 10:00 Drisdol - PO DAILY [facility] Heparin Sodium (Porcine) 5,000 unit 06/06/18 06:00 06/06/18 06:10 Heparin - SQ 5,000 unit TID S[facility] Administration Hydralazine HCl 50 mg 06/06/18 10:00 Apresoline - PO BID S[facility] Sodium Chloride 1,000 mls @ 100 mls/hr 06/05/18 22:45 06/05/18 22:45 Normal Saline - IV 100 mls/hr ASDIR [facility] Administration Insulin Aspart 1 vial 06/06/18 07:00 06/06/18 06:30 Novolog Vial Sliding Scale - SQ Not Given ACHS [facility] Protocol Magnesium Oxide 400 mg 06/06/18 10:00 Mag-Ox - PO BID [facility] Metoprolol Tartrate 25 mg 06/06/18 10:00 Lopressor - PO BID [facility] Mycophenolate Mofetil 750 mg 06/06/18 10:00 Cellcept - PO BID [facility] Non-Formulary Medication 12 unit 06/06/18 03:00 06/06/18 03:15 Insulin Aspart [Novolog] SQ 12 unit ASDIR [facility] Administration Ranitidine HCl 150 mg 06/06/18 02:58 Zantac - PO ASDIR PRN acid reflux Tacrolimus 3 mg 06/06/18 10:00 Prograf PO BID S[facility] Terazosin HCl 1 mg 06/06/18 10:00 Hytrin - PO BID [facility] ASSESSMENT/PLAN: Acute kidney injury Renal Transplantation Syncopal episode DM HTN HLD Lupus Sjogren's --Urine studies already sent out --Fraction excretion of urea is 30.7 (pre-renal) which coincides with positive orthostatic vital signs --Would continue IVF hydration (NS@100cc/hr) for now --Prograf level pending and will f/u once resolves --Continue pt's immunosuppressant therapy (Hytrin 1mg BID, Prograf 3mg BID, Cellcept 750mg BID) --Monitor Cr --Rest per primary team Dispo: Continue current mgmt. Thank you for this consultative opportunity Case discussed with Dr. Lillian Charles, DO - IM PGY-2 Visit type - Emergency Visit Emergency Visit: Yes ED Registration Date: 06/05/18 Care time: The patient presented to the Emergency Department on the above date and was hospitalized for further evaluation of their emergent condition. - New Patient This patient is new to me today: Yes Date on this admission: 06/06/18 - Critical Care Critical Care patient: No
--- NOTE | 2018-06-06 12:54 | ECHO ---
Name: ROSEMARY BARAJAS, Exam:Adult Echocardiogram Study Date: 06/06/2018 12:02 PM Age: 62 yrs Reason For Study: SYNCOPE Height: 72 in Weight: 261 lb BSA: 2.4 m2 MMode/2D Measurements & Calculations IVSd: 1.5 cm LA dimension: 3.9 cm LVIDd: 4.7 cm LVIDs: 2.6 cm LVPWd: 1.5 cm LVPWs: 2.5 cm EDV(Teich): 103.3 ml ESV(Teich): 24.2 ml Doppler Measurements & Calculations MV E max haja: 86.9 cm/sec Ao V2 max: 163.7 cm/sec MV A max haja: 71.1 cm/sec Ao max P.3 mmHg MV E/A: 1.2 AI P1/2t: 579.1 msec AI max haja: 414.3 cm/sec LV V1 max P.5 mmHg AI max P.7 mmHg LV V1 max: 117.0 cm/sec AI dec slope: 209.6 cm/sec2 PA V2 max: 104.5 cm/sec Med Peak E' Haja: 5.3 cm/sec PA max P.4 mmHg Med E/e': 16.5 Lat Peak E' Haja: 8.7 cm/sec Lat E/e': 10.0 Procedure The study was technically difficult with many images being suboptimal in quality. Left Ventricle There is mild concentric left ventricular hypertrophy. Left ventricular systolic function is grossly normal. Regional wall motion abnormalities cannot be excluded due to limited visualization. Right Ventricle The right ventricle is grossly normal size. The right ventricular systolic function is grossly normal . Atria Normal left and right atrial size and function. Mitral Valve The mitral valve is grossly normal. There is no mitral valve stenosis. Aortic Valve The aortic valve opens well. No hemodynamically significant valvular aortic stenosis. Mild aortic regurgitation. Pulmonic Valve The pulmonic valve is not well seen, but is grossly normal. There is no pulmonic valvular stenosis. Great Vessels The aortic root is normal size. Pericardium/Pleura There is no pericardial effusion. Interpretation Summary The study was technically difficult with many images being suboptimal in quality. Left ventricular systolic function is grossly normal. Regional wall motion abnormalities cannot be excluded due to limited visualization. There is mild concentric left ventricular hypertrophy. Mild aortic regurgitation. There is no pericardial effusion. MD Cedeno *Christine 06/06/2018 12:53 PM
--- NOTE | 2018-06-06 14:14 | PN ---
Teaching Attending Note Name of Resident: Edmar Charles (Nephrology) ATTENDING PHYSICIAN STATEMENT I saw and evaluated the patient. I reviewed the resident's note and discussed the case with the resident. I agree with the resident's findings and plan as documented. Renal Pt is a 62 year old male with pmhx of dm htn and kidney transplant who presents to the ER after a syncopal episode. He denies shortness of breath or chest pain. He had the kidney transplant in 2010 from a living donor. He says that his creatinin ranges between 1.5 and 3. He has had multiple kidney biopsies done in [place] where had had the transplant. He says he feels better today than he did yesterday. He denies dysuria or hematuria. phx dm htn ckd psh kidney transplan allergies pcn family hx denies ros leg pain Current Medications Generic Name Dose Route Start Last Admin Trade Name Freq PRN Reason Stop Dose Admin Acetaminophen 650 mg 06/05/18 22:43 Tylenol - PO Q6H PRN PAIN LEVEL 6-10 Atorvastatin Calcium 10 mg 06/06/18 22:00 Lipitor - PO HS SARY Divalproex Sodium 500 mg 06/06/18 10:00 06/06/18 11:30 Depakote - PO 500 mg BID SARY Administration Ergocalciferol 50,000 unit 06/06/18 10:00 Drisdol - PO DAILY SARY Heparin Sodium (Porcine) 5,000 unit 06/06/18 06:00 06/06/18 06:10 Heparin - SQ 5,000 unit TID SARY Administration Hydralazine HCl 50 mg 06/06/18 10:00 06/06/18 11:29 Apresoline - PO 50 mg BID SARY Administration Sodium Chloride 1,000 mls @ 100 mls/hr 06/05/18 22:45 06/05/18 22:45 Normal Saline - IV 100 mls/hr ASDIR SARY Administration Insulin Aspart 1 vial 06/06/18 07:00 06/06/18 11:39 Novolog Vial Sliding Scale - SQ 4 units ACHS SARY Administration Protocol Magnesium Oxide 400 mg 06/06/18 10:00 06/06/18 11:31 Mag-Ox - PO 400 mg BID SARY Administration Metoprolol Tartrate 25 mg 06/06/18 10:00 06/06/18 11:30 Lopressor - PO 25 mg BID SARY Administration Mycophenolate Mofetil 750 mg 06/06/18 10:00 06/06/18 11:30 Cellcept - PO 750 mg BID SARY Administration Non-Formulary Medication 12 unit 06/06/18 03:00 06/06/18 03:15 Insulin Aspart [Novolog] SQ 12 unit ASDIR SARY Administration Ranitidine HCl 150 mg 06/06/18 02:58 Zantac - PO ASDIR PRN acid reflux Tacrolimus 3 mg 06/06/18 10:00 06/06/18 11:31 Prograf PO 3 mg BID SARY Administration Terazosin HCl 1 mg 06/06/18 10:00 06/06/18 11:30 Hytrin - PO 1 mg BID SARY Administration Laboratory Tests 06/05/18 06/05/18 06/05/18 00:29 16:15 16:22 WBC 8.7 Hgb 10.5 L Creatinine 3.2 H Urine Protein 2+ H Urine Blood Negative 06/06/18 06/06/18 09:43 09:43 WBC 6.6 Hgb 9.7 L Creatinine 3.1 H Urine Protein Urine Blood Last Vital Signs Temp Pulse Resp BP Pulse Ox 98.2 F 63 17 138/59 L 99 06/06/18 12:58 06/06/18 12:58 06/06/18 12:58 06/06/18 12:58 06/06/18 09:00 cxr cardiomegaly kidney ultrasound reviewed cardio s1s2 reg pulm clear GI soft heent oswaldo gu graft soft and non tender, neg bruit ext trace edema skin neg rash heent oswaldo neuro aaox3 psych calm ext pos pulses Impression 1. CKD 2. kidney transplant 3. DM 4. HTN 5. leg fracture 6. HLD 7. 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
[2018-06-06] MEDS: SODIUM CHLORIDE 1,000 ML IV SCH (15:15)
[2018-06-06 19:28] VITALS: BMI 35.3
[2018-06-06] MEDS ORDERED: oxyCODONE HCL 5 MG TABLET PO ONE (20:00)
[2018-06-06] MEDS ORDERED: ERGOCALCIFEROL (VITAMIN D2) 50,000 UNIT CAPSULE (FP) PO SCH (20:15)
[2018-06-06] MEDS ORDERED: INSULIN (NOVOLOG) ASPART 100 UNITS/ML 10ML VIAL ONE (21:54)
[2018-06-06] MEDS ORDERED: PT OWN MED DRAWER 7, Y5N ONE (21:55)
[2018-06-06] MEDS: ATORVASTATIN CA 10 MG TABLET (FP) PO SCH (23:21)
[2018-06-07] MEDS: SODIUM CHLORIDE 1,000 ML IV SCH ×3 (03:14→15:38)
[2018-06-07] MEDS: ACETAMINOPHEN 325 MG TABLET (FP) PO PRN ×2 (04:44→20:11)
[2018-06-07] MEDS: INSULIN SLIDING SCALE (NOVOLOG) 1 VIAL SQ SCH ×4 (06:21→21:09)
[2018-06-07] MEDS: HEPARIN NA (PORCINE) 5,000 UNITS/ML 1ML VIAL SQ SCH ×3 (06:21→21:09)
--- NOTE | 2018-06-07 08:07 | PN ---
Progress Note, Physician Chief Complaint: C/O Left knee pain History of Present Illness: 62 y/o male with a history of sjrogens, lupus, DM, HTN, HLD, RF s/p renal transplant in 2010 who presents for syncope. On May 19 patient was in an accident and fractured his patella evluted at [facility] discharged after evaluation by Orthopedics surgery for out patient F/U with Dr Pineda.. Yesterday he was seeing PT to help him learn how to walk around his house on crutches with his leg immobilized. He took half a percocet earlier in preperation for the pain. Patient states he also had breakfast. He was tiring of walking around on the crutches, so he went to sit down where he syncopized on the floor. - Current Medication List Current Medications: Active Medications Acetaminophen (Tylenol -) 650 mg PO Q6H PRN PRN Reason: PAIN LEVEL 6-10 Last Admin: 06/07/18 04:44 Dose: 650 mg Atorvastatin Calcium (Lipitor -) 10 mg PO HS [facility] Last Admin: 06/06/18 23:21 Dose: 10 mg Divalproex Sodium (Depakote -) 500 mg PO BID [facility] Last Admin: 06/06/18 23:23 Dose: 500 mg Ergocalciferol (Drisdol -) 50,000 unit PO Q30D@1000 [facility] Last Admin: 06/06/18 23:21 Dose: 50,000 unit Heparin Sodium (Porcine) (Heparin -) 5,000 unit SQ TID [facility] Last Admin: 06/07/18 06:21 Dose: 5,000 unit Hydralazine HCl (Apresoline -) 50 mg PO BID [facility] Last Admin: 06/06/18 23:21 Dose: 50 mg Sodium Chloride (Normal Saline -) 1,000 mls @ 83 mls/hr IV ASDIR [facility] Last Admin: 06/07/18 03:14 Dose: 83 mls/hr Insulin Aspart (Novolog Vial Sliding Scale -) 1 vial SQ ACHS [facility]; Protocol Last Admin: 06/07/18 06:21 Dose: 2 units Metoprolol Tartrate (Lopressor -) 25 mg PO BID [facility] Last Admin: 06/06/18 23:34 Dose: 25 mg Mycophenolate Mofetil (Cellcept -) 750 mg PO BID [facility] Last Admin: 06/06/18 23:24 Dose: 750 mg Non-Formulary Medication (Insulin Aspart [Novolog]) 12 unit SQ ASDIR [facility] Last Admin: 06/06/18 03:15 Dose: 12 unit Ranitidine HCl (Zantac -) 150 mg PO DAILY PRN PRN Reason: acid reflux Tacrolimus (Prograf) 3 mg PO BID [facility] Last Admin: 06/06/18 23:23 Dose: 3 mg Terazosin HCl (Hytrin -) 1 mg PO BID [facility] Last Admin: 06/06/18 23:24 Dose: 1 mg - Objective Vital Signs: Vital Signs Temperature 98.5 F 06/07/18 07:56 Pulse Rate 62 06/07/18 07:56 Respiratory Rate 19 06/07/18 07:56 Blood Pressure 152/46 L 06/07/18 07:56 O2 Sat by Pulse Oximetry (%) 98 06/06/18 21:00 Middle aged man not in distress c/o Left knee pain HEENT: mm moist, no anemia, PERRLA EOMI NECK: No JVd No Bruit CHEST: CTA B/L CVS: s1S2 R no m/g/r ABD: No distention non tender Bs + EXT: Left knee in immobilized. Pulses +2 FIXED INCOME ANALYST: AOx3 non focal intact motor and sensory functions. Labs: INR, PTT INR 1.06 (0.83-1.09) 06/05/18 16:22 Problem List - Problems (1) Syncope Assessment/Plan: Most likely combination of orthostatic with neurocardiogenic secondary to pain , normal EKG no chest pain will F/U ECHO , fall precautions PT evaluation after hydration. Code(s): R55 - SYNCOPE AND COLLAPSE (2) H/O kidney transplant Assessment/Plan: Cont all Home modes F/U Nephrology recommondations Code(s): Z94.0 - KIDNEY TRANSPLANT STATUS (3) HTN (hypertension) Assessment/Plan: Well controlled cont home meds Code(s): I10 - ESSENTIAL (PRIMARY) HYPERTENSION (4) Lupus Assessment/Plan: Not on any medicatins Code(s): L93.0 - DISCOID LUPUS ERYTHEMATOSUS (5) Anemia Assessment/Plan: chronic stable Code(s): D64.9 - ANEMIA, UNSPECIFIED (6) CKD (chronic kidney disease) Assessment/Plan: post transplant CKD last Sr Creat 3.[address] [facility] 2wks ago level stayed Code(s): N18.9 - CHRONIC KIDNEY DISEASE, UNSPECIFIED Qualifiers: Chronic kidney disease stage: stage 4 (severe) Qualified Code(s): N18.4 - Chronic kidney disease, stage 4 (severe) (7) KAMILLA (acute kidney injury) Assessment/Plan: Top on CKD due to dehydration F/U BMP after IV hydration Code(s): N17.9 - ACUTE KIDNEY FAILURE, UNSPECIFIED (8) Dehydration Assessment/Plan: F/U BMP after IV Hydration Code(s): E86.0 - DEHYDRATION (9) T2DM (type 2 diabetes mellitus) Assessment/Plan: F/U Accucheck resume Home meds optimize glycemic control Code(s): E11.9 - TYPE 2 DIABETES MELLITUS WITHOUT COMPLICATIONS (10) D-dimer, elevated Assessment/Plan: Present with syncope D Dimmers highly elevated , Left LE is immobilized , no c/ o chest pain or SOB, Left LE Doppler -ve for DVT patient has H/O Lupus, recently stopped Eliquis 3 months ago after 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 Code(s): R79.89 - OTHER SPECIFIED ABNORMAL FINDINGS OF BLOOD CHEMISTRY
[2018-06-07 08:16] LABS: BASO % 0.7 % (0-2.0); EOS % 3.8 % (0-4.5); HEMATOCRIT 27.6 % (35.4-49); HEMOGLOBIN 9.2 GM/dL (11.7-16.9); LYMPH % 39.2 % (8-40); MCH 24.4 pg (25.7-33.7); MCHC 33.6 g/dl (32.0-35.9); MEAN CELL VOLUME 72.7 fl (80-96); MEAN PLT VOLUME 9.2 fl (7.5-11.1); MONO % 7.9 % (3.8-10.2); NEUT % 48.4 % (42.8-82.8); PLATELET COUNT 188 K/MM3 (134-434); RBC 3.79 M/mm3 (4.00-5.60); RDW 18.2 % (11.9-15.9); WHITE BLOOD COUNT 4.8 K/mm3 (4.0-10.0)
[2018-06-07 09:07] LABS: ALK PHOS 83 U/L (45-117); ANION GAP 8 MMOL/L (8-16); BILIRUBIN,TOTAL 0.3 mg/dL (0.2-1); BLOOD UREA NITROGEN 48 mg/dL (7-18); CALCIUM 8.8 mg/dL (8.5-10.1); CHLORIDE 113 mmol/L (98-107); CO2 21 mmol/L (21-32); GLUCOSE,RANDOM 148 mg/dL (74-106); MAGNESIUM 2.5 mg/dL (1.8-2.4); POTASSIUM 4.7 mmol/L (3.5-5.1); SGOT/AST 10 U/L (15-37); SGPT/ALT 13 U/L (13-61); SODIUM 142 mmol/L (136-145); TOT PROT 6.4 g/dl (6.4-8.2)
[2018-06-07] MEDS: METOPROLOL TARTRATE 25 MG TABLET (FP) PO SCH ×2 (09:54→21:09)
[2018-06-07] MEDS: hydrALAZINE HCL 50 MG TABLET (FP) PO SCH ×2 (09:54→21:08)
[2018-06-07] MEDS: DIVALPROEX SODIUM 500 MG TABLET E.C. PO SCH ×2 (09:55→21:09)
[2018-06-07] MEDS: TACROLIMUS ANHYDROUS 1 MG CAPSULE PO SCH ×2 (09:56→21:54)
[2018-06-07] MEDS: TERAZOSIN HCL 1 MG CAPSULE PO SCH ×2 (09:56→21:09)
[2018-06-07] MEDS: MYCOPHENOLATE MOFETIL 250 MG CAPSULE PO SCH ×2 (09:57→21:08)
--- NOTE | 2018-06-07 12:34 | PN ---
Progress Note (short form) - Note Progress Note: RENAL Pt admitted for syncopal episode during PT. He fell 2 weeks ago. Has had other syncopal episodes Had a living unrelated kidney transplant in 2010 He was not feeling well and vomited after waking up He is on several BP meds and states his creatis usually between 1.5 and 3 Had a kidney biopsy in the past but does not know result Says his initial post transplant creat was less than 1 Does not take steroids, colchicine and zantac recently added to his med regimen left arm avf is closed Last Vital Signs Temp Pulse Resp BP Pulse Ox 98.2 F 62 19 158/83 98 06/07/18 09:45 06/07/18 09:45 06/07/18 09:45 06/07/18 09:45 06/06/18 21:00 lungs clear cvs s1s2 rr abd soft ext no edema, flat feet neuro a+ox3 CBC, BMP 06/07/18 07:00 06/07/18 07:00 Current Medications Generic Name Dose Route Start Last Admin Trade Name Freq PRN Reason Stop Dose Admin Acetaminophen 650 mg 06/05/18 22:43 06/07/18 04:44 Tylenol - PO 650 mg Q6H PRN Administration PAIN LEVEL 6-10 Atorvastatin Calcium 10 mg 06/06/18 22:00 06/06/18 23:21 Lipitor - PO 10 mg HS SARY Administration Divalproex Sodium 500 mg 06/06/18 10:00 06/07/18 09:55 Depakote - PO 500 mg BID SARY Administration Ergocalciferol 50,000 unit 06/06/18 20:15 06/06/18 23:21 Drisdol - PO 50,000 unit Q30D@1000 SARY Administration Heparin Sodium (Porcine) 5,000 unit 06/06/18 06:00 06/07/18 06:21 Heparin - SQ 5,000 unit TID SARY Administration Hydralazine HCl 50 mg 06/06/18 10:00 06/07/18 09:54 Apresoline - PO 50 mg BID SARY Administration Sodium Chloride 1,000 mls @ 83 mls/hr 06/06/18 14:17 06/07/18 03:14 Normal Saline - IV 83 mls/hr ASDIR SARY Administration Insulin Aspart 1 vial 06/06/18 07:00 06/07/18 11:23 Novolog Vial Sliding Scale - SQ 4 units ACHS SARY Administration Protocol Metoprolol Tartrate 25 mg 06/06/18 10:00 06/07/18 09:54 Lopressor - PO 25 mg BID SARY Administration Mycophenolate Mofetil 750 mg 06/06/18 10:00 06/07/18 09:57 Cellcept - PO 750 mg BID SARY Administration Non-Formulary Medication 12 unit 06/06/18 03:00 06/06/18 03:15 Insulin Aspart [Novolog] SQ 12 unit ASDIR SARY Administration Ranitidine HCl 150 mg 06/06/18 02:58 Zantac - PO DAILY PRN acid reflux Tacrolimus 3 mg 06/06/18 10:00 06/07/18 09:56 Prograf PO 3 mg BID SARY Administration Terazosin HCl 1 mg 06/06/18 10:00 06/07/18 09:56 Hytrin - PO 1 mg BID SARY Administration IMPRESSION 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 Note pt is on terazosin which is associated with orthostatic hypotension s/p kidney transplant PLAN would do a 24 hour ambulatory BP monitor monitor BP, would keep above 130 tacro level check orthostatics monitor renal function MV
--- NOTE | 2018-06-07 14:11 | CON.PULM ---
Consult Consult Specialty:: PULMONARY Referred by:: DEBORAH Reason for Consultation:: R/O PE - History of Present Illness Chief Complaint: SYNCOPE History of Present Illness: 62M w/ pmhx of Sjogren's syndrome, lupus, DM, HTN, HLD, RF s/p R kidney transplant (07/15) presents to the ED after 2 syncopal episodes. Pt's also present at bedside to provide history. Pt was at home with physical therapist ( recently had L knee fracture, treated with PT only) and had a syncopal episode during a PT session. Syncopal episode happened while pt was sitting in a chair. noted that pt slumped down in his chair and proceeded to fall onto the floor losing consciousness for 30 seconds. Per , pt woke up after 30 seconds , but lost consciousness again after 5 min for 10 seconds. No witnessed head injury during syncope. Pt does not recall losing consciousness. After second syncopal episode, pt had nausea with 2 episodes of nonbloody, nonbilious vomiting. Admits to chills and severe LLE pain due to knee fracture. Denies headache/dizziness, abdominal pain, tongue biting, urinary/bowel bowel incontinence, blood in urine.Patient admits compliance to all meds. 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 No: AFIB Pulmonary: No: Asthma, COPD Gastrointestinal: No: Ascites Hepatobiliary: No: Cirrhosis Renal/: Yes: Renal Failure, Hemodialysis, Other (s/p kidney transplant) Heme/Onc: Yes: Anemia Infectious Disease: No: AIDS Psych: No: Addictions Musculoskeletal: Yes: Other (left patellar fracture). No: Bursitis Rheumatology: Yes: Lupus, Other (sjogren's syndrome) Endocrine: Yes: Diabetes Mellitus - Past Surgical History Past Surgical History: Yes: Kidney Transplant - Alcohol/Substance Use Hx Alcohol Use: No History of Substance Use: reports: None - Smoking History Smoking history: Never smoked Have you smoked in the past 12 months: No - Social History Usual Living Arrangement: With Spouse ADL: Independent History of Recent Travel: Yes Home Medications - Allergies Allergies/Adverse Reactions: Allergies Allergy/AdvReac Type Severity Reaction Status Date / Time Penicillins Allergy Verified 06/05/18 15:53 - Home Medications Home Medications: Ambulatory Orders Amlodipine Besylate 10 mg PO DAILY 06/05/18 Colchicine 0.6 mg PO DAILY 06/05/18 Divalproex [Depakote -] 500 mg PO BID 06/05/18 Ergocalciferol (Vitamin D2) [Vitamin D2] 50,000 unit PO DAILY 06/05/18 Furosemide 40 mg PO BID 06/05/18 Hydralazine HCl 50 mg PO BID 06/05/18 Insulin Aspart [Novolog] 12 unit SQ ASDIR 06/05/18 Insulin Degludec [Tresiba Flextouch U-100] 65 unit SQ HS 06/05/18 Lisinopril 5 mg PO DAILY 06/05/18 Magnesium Oxide [Magnesium] 400 mg PO BID 06/05/18 Metoprolol Tartrate 25 mg PO BID 06/05/18 Mycophenolate Mofetil [Cellcept] 750 mg PO BID 06/05/18 Ranitidine HCl [Zantac] 150 mg PO ASDIR PRN 06/05/18 Simvastatin 20 mg PO DAILY 06/05/18 Sodium Bicarbonate - 10 g PO BID 06/05/18 Tacrolimus [Prograf] 3 mg PO BID 06/05/18 Terazosin HCl [Hytrin] 1 mg PO BID 06/05/18 Family Disease History - Family Disease History Family History: Unremarkable Review of Systems - Review of Systems Constitutional: reports: Lethargy, Malaise. denies: Fever Eyes: denies: Blurred Vision HENT: denies: Difficult Swallowing Neck: denies: Decreased ROM Cardiovascular: denies: Chest Pain Respiratory: reports: Exercise Intolerance. denies: Cough, Hemoptysis, Orthopnea, Wheezing Gastrointestinal: denies: Abdominal Pain Genitourinary: denies: Burning Breasts: reports: No Symptoms Reported Musculoskeletal: reports: Joint Pain Integumentary: reports: No Symptoms Neurological: reports: Syncope Endocrine: reports: No Symptoms Hematology/Lymphatic: reports: No Symptoms Psychiatric: reports: No Symptoms Physical Exam Vital Sings: Vital Signs Temperature 98.2 F 06/07/18 09:45 Pulse Rate 62 06/07/18 09:45 Respiratory Rate 19 06/07/18 09:45 Blood Pressure 158/83 06/07/18 09:45 O2 Sat by Pulse Oximetry (%) 98 06/06/18 21:00 Constitutional: Yes: Calm Eyes: Yes: EOM Intact HENT: Yes: Normocephalic Neck: Yes: Trachea Midline Cardiovascular: Yes: Regular Rate and Rhythm Respiratory: Yes: CTA Bilaterally Gastrointestinal: Yes: Normal Bowel Sounds, Abdomen, Obese Extremities: Yes: Other (left patellar fracture) Integumentary: Yes: WNL Neurological: Yes: WNL ...Motor Strength: RLE Psychiatric: Yes: WNL Labs: CBC, BMP 06/07/18 07:00 06/07/18 07:00 rest reviewed Imaging - Results Chest X-ray: Report Reviewed, Image Reviewed Ultrasound: Report Reviewed Problem List - Problems (1) Anemia Code(s): D64.9 - ANEMIA, UNSPECIFIED (2) D-dimer, elevated Code(s): R79.89 - OTHER SPECIFIED ABNORMAL FINDINGS OF BLOOD CHEMISTRY (3) Dehydration Code(s): E86.0 - DEHYDRATION (4) H/O kidney transplant Code(s): Z94.0 - KIDNEY TRANSPLANT STATUS (5) HTN (hypertension) Code(s): I10 - ESSENTIAL (PRIMARY) HYPERTENSION (6) Lupus Code(s): L93.0 - DISCOID LUPUS ERYTHEMATOSUS (7) Syncope Code(s): R55 - SYNCOPE AND COLLAPSE (8) CKD (chronic kidney disease) Code(s): N18.9 - CHRONIC KIDNEY DISEASE, UNSPECIFIED (9) T2DM (type 2 diabetes mellitus) Code(s): E11.9 - TYPE 2 DIABETES MELLITUS WITHOUT COMPLICATIONS Assessment/Plan PATIENT HAS MULTIPLE REASONS TO HAVE AN ELEVATED D-DIMER RENAL FAILURE RECENT FALL RECENT PATELLAR FRACTURE MY INDEX OF SUSPICION FOR PE IS LOW HOWEVER ALL OF THE ABOVE COUPLED WITH HIS RECENT SEDENTARY SITUATION POST PATELLAR FRACTURE CAN INCREASE HIS RISK FOR PE WOULD SUGGEST V/Q SCAN ON SATURDAY TO R/O PE UNABLE TO ORDER CTA DUE TO HIS CHRONIC KIDNEY DISEASE MAY CONSIDER INCREASING IV FLUID RATE PATIENT IS NOT EATING AND HYDRATING ADEQUATELY WILL FOLLOW Aguilar MARTINEZ MD
[2018-06-07] MEDS ORDERED: PT OWN MED DRAWER 7, Y5N ONE (20:34)
[2018-06-07] MEDS: ATORVASTATIN CA 10 MG TABLET (FP) PO SCH (21:09)
[2018-06-08] MEDS: SODIUM CHLORIDE 1,000 ML IV SCH ×3 (01:05→13:12)
[2018-06-08] MEDS: ACETAMINOPHEN 325 MG TABLET (FP) PO PRN (02:25)
[2018-06-08] MEDS: HEPARIN NA (PORCINE) 5,000 UNITS/ML 1ML VIAL SQ SCH ×3 (06:01→21:22)
[2018-06-08] MEDS: INSULIN SLIDING SCALE (NOVOLOG) 1 VIAL SQ SCH ×4 (06:01→21:20)
[2018-06-08 07:34] LABS: BASO % 0.7 % (0-2.0); EOS % 3.4 % (0-4.5); HEMATOCRIT 27.9 % (35.4-49); HEMOGLOBIN 9.4 GM/dL (11.7-16.9); LYMPH % 38.4 % (8-40); MCH 24.5 pg (25.7-33.7); MCHC 33.8 g/dl (32.0-35.9); MEAN CELL VOLUME 72.5 fl (80-96); MONO % 6.2 % (3.8-10.2); NEUT % 51.3 % (42.8-82.8); PLATELET COUNT 204 K/MM3 (134-434); RBC 3.85 M/mm3 (4.00-5.60); RDW 17.8 % (11.9-15.9); WHITE BLOOD COUNT 5.6 K/mm3 (4.0-10.0)
--- NOTE | 2018-06-08 08:03 | PN ---
Progress Note, Physician Chief Complaint: C/O Left knee pain History of Present Illness: 62 y/o male with a history of sjrogens, lupus, DM, HTN, HLD, RF s/p renal transplant in 2010 who presents for syncope. On May 19 patient was in an accident and fractured his patella evluted at [facility] discharged after evaluation by Orthopedics surgery for out patient F/U with Dr Pineda.. Yesterday he was seeing PT to help him learn how to walk around his house on crutches with his leg immobilized. He took half a percocet earlier in preperation for the pain. Patient states he also had breakfast. He was tiring of walking around on the crutches, so he went to sit down where he syncopized on the floor. - Current Medication List Current Medications: Active Medications Acetaminophen (Tylenol -) 650 mg PO Q6H PRN PRN Reason: PAIN LEVEL 6-10 Last Admin: 06/08/18 02:25 Dose: 650 mg Atorvastatin Calcium (Lipitor -) 10 mg PO HS [facility] Last Admin: 06/07/18 21:09 Dose: 10 mg Divalproex Sodium (Depakote -) 500 mg PO BID [facility] Last Admin: 06/07/18 21:09 Dose: 500 mg Ergocalciferol (Drisdol -) 50,000 unit PO Q30D@1000 [facility] Last Admin: 06/06/18 23:21 Dose: 50,000 unit Heparin Sodium (Porcine) (Heparin -) 5,000 unit SQ TID [facility] Last Admin: 06/08/18 06:01 Dose: 5,000 unit Hydralazine HCl (Apresoline -) 50 mg PO BID [facility] Last Admin: 06/07/18 21:08 Dose: 50 mg Sodium Chloride (Normal Saline -) 1,000 mls @ 100 mls/hr IV ASDIR [facility] Last Admin: 06/08/18 01:05 EST Dose: 100 mls/hr Insulin Aspart (Novolog Vial Sliding Scale -) 1 vial SQ ACHS [facility]; Protocol Last Admin: 06/08/18 06:01 Dose: 2 units Metoprolol Tartrate (Lopressor -) 25 mg PO BID [facility] Last Admin: 06/07/18 21:09 Dose: 25 mg Mycophenolate Mofetil (Cellcept -) 750 mg PO BID [facility] Last Admin: 06/07/18 21:08 Dose: 750 mg Non-Formulary Medication (Insulin Aspart [Novolog]) 12 unit SQ ASDIR [facility] Last Admin: 06/06/18 03:15 Dose: 12 unit Ranitidine HCl (Zantac -) 150 mg PO DAILY PRN PRN Reason: acid reflux Tacrolimus (Prograf) 3 mg PO BID [facility] Last Admin: 06/07/18 21:54 Dose: 3 mg Terazosin HCl (Hytrin -) 1 mg PO BID [facility] Last Admin: 06/07/18 21:09 Dose: 1 mg - Objective Vital Signs: Vital Signs Temperature 98.7 F 06/07/18 20:08 Pulse Rate 66 06/08/18 06:37 Respiratory Rate 18 06/08/18 06:37 Blood Pressure 125/72 06/08/18 06:37 O2 Sat by Pulse Oximetry (%) 98 06/07/18 21:00 Middle aged man not in distress c/o Left knee pain HEENT: mm moist, no anemia, PERRLA EOMI NECK: No JVd No Bruit CHEST: CTA B/L CVS: s1S2 R no m/g/r ABD: No distention non tender Bs + EXT: Left knee in immobilized. 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 Labs: CBC, BMP 06/08/18 06:00 INR, PTT INR 1.06 (0.83-1.09) 06/05/18 16:22 Problem List - Problems (1) Syncope Assessment/Plan: Most likely combination of orthostatic with neurocardiogenic secondary to pain , normal EKG no chest pain will F/U ECHO , fall precautions PT evaluation after hydration. Code(s): R55 - SYNCOPE AND COLLAPSE (2) H/O kidney transplant Assessment/Plan: Cont all Home modes F/U Nephrology recommondations Code(s): Z94.0 - KIDNEY TRANSPLANT STATUS (3) HTN (hypertension) Assessment/Plan: Well controlled cont home meds Code(s): I10 - ESSENTIAL (PRIMARY) HYPERTENSION (4) Lupus Assessment/Plan: Not on any medicatins Code(s): L93.0 - DISCOID LUPUS ERYTHEMATOSUS (5) Anemia Assessment/Plan: chronic stable Code(s): D64.9 - ANEMIA, UNSPECIFIED (6) CKD (chronic kidney disease) Assessment/Plan: post transplant CKD last Sr Creat 3.1 in January 2018 [facility] 2wks ago level stayed Code(s): N18.9 - CHRONIC KIDNEY DISEASE, UNSPECIFIED Qualifiers: Chronic kidney disease stage: stage 4 (severe) Qualified Code(s): N18.4 - Chronic kidney disease, stage 4 (severe) (7) KAMILLA (acute kidney injury) Assessment/Plan: Top on CKD due to dehydration F/U BMP after IV hydration Code(s): N17.9 - ACUTE KIDNEY FAILURE, UNSPECIFIED (8) Dehydration Assessment/Plan: F/U BMP after IV Hydration Code(s): E86.0 - DEHYDRATION (9) T2DM (type 2 diabetes mellitus) Assessment/Plan: F/U Accucheck resume Home meds optimize glycemic control Code(s): E11.9 - TYPE 2 DIABETES MELLITUS WITHOUT COMPLICATIONS (10) D-dimer, elevated Assessment/Plan: Present with syncope D Dimmers highly elevated , Left LE is immobilized , no c/ o chest pain or SOB, Left LE Doppler -ve for DVT patient has H/O Lupus, recently stopped Eliquis 3 months ago after 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 Code(s): R79.89 - OTHER SPECIFIED ABNORMAL FINDINGS OF BLOOD CHEMISTRY
[2018-06-08 08:04] LABS: ANION GAP 9 MMOL/L (8-16); BLOOD UREA NITROGEN 38 mg/dL (7-18); CALCIUM 8.5 mg/dL (8.5-10.1); CHLORIDE 114 mmol/L (98-107); CO2 19 mmol/L (21-32); CREATININE 2.7 mg/dL (0.55-1.3); GLUCOSE,RANDOM 133 mg/dL (74-106); POTASSIUM 4.7 mmol/L (3.5-5.1); SODIUM 143 mmol/L (136-145)
[2018-06-08] MEDS ORDERED: oxyCODONE HCL 5 MG TABLET PO PRN (09:10)
[2018-06-08] MEDS ORDERED: DOCUSATE SODIUM 100 MG CAPSULE (FP) PO PRN (09:12)
[2018-06-08] MEDS ORDERED: oxyCODONE HCL 5 MG TABLET ONE (10:21)
[2018-06-08] MEDS: METOPROLOL TARTRATE 25 MG TABLET (FP) PO SCH ×2 (10:26→21:23)
[2018-06-08] MEDS: TERAZOSIN HCL 1 MG CAPSULE PO SCH ×2 (10:26→21:22)
[2018-06-08] MEDS: hydrALAZINE HCL 50 MG TABLET (FP) PO SCH ×2 (10:26→21:21)
[2018-06-08] MEDS: TACROLIMUS ANHYDROUS 1 MG CAPSULE PO SCH ×2 (10:27→21:23)
[2018-06-08] MEDS: MYCOPHENOLATE MOFETIL 250 MG CAPSULE PO SCH ×2 (10:27→21:22)
[2018-06-08] MEDS: DIVALPROEX SODIUM 500 MG TABLET E.C. PO SCH ×2 (10:35→21:22)
[2018-06-08] MEDS ORDERED: INSULIN (NOVOLOG) ASPART 100 UNITS/ML 10ML VIAL ONE (11:01)
--- NOTE | 2018-06-08 11:26 | PN ---
Progress Note (short form) - Note Progress Note: RENAL feels well asking when he can be discharged Last Vital Signs Temp Pulse Resp BP Pulse Ox 97.7 F 72 18 158/84 98 06/08/18 10:00 06/08/18 10:00 06/08/18 10:00 06/08/18 10:00 06/07/18 21:00 lungs clear cvs s1s2 rr abd soft ext no edema, flat feet neuro a+ox3 CBC, BMP 06/08/18 06:00 06/08/18 06:00 Current Medications Generic Name Dose Route Start Last Admin Trade Name Freq PRN Reason Stop Dose Admin Acetaminophen 650 mg 06/08/18 09:12 Tylenol - PO Q6H PRN PAIN Atorvastatin Calcium 10 mg 06/06/18 22:00 06/07/18 21:09 Lipitor - PO 10 mg HS SARY Administration Colchicine 0.6 mg 06/08/18 10:00 Colcrys - PO DAILY SARY Divalproex Sodium 500 mg 06/06/18 10:00 06/08/18 10:35 Depakote - PO 500 mg BID SARY Administration Docusate Sodium 100 mg 06/08/18 09:12 Colace - PO BID PRN CONSTIPATION Ergocalciferol 50,000 unit 06/06/18 20:15 06/06/18 23:21 Drisdol - PO 50,000 unit Q30D@1000 SARY Administration Heparin Sodium (Porcine) 5,000 unit 06/06/18 06:00 06/08/18 06:01 Heparin - SQ 5,000 unit TID SARY Administration Hydralazine HCl 50 mg 06/06/18 10:00 06/08/18 10:26 Apresoline - PO 50 mg BID SARY Administration Sodium Chloride 1,000 mls @ 100 mls/hr 06/07/18 15:06 06/08/18 10:25 Normal Saline - IV 100 mls/hr ASDIR SARY Administration Insulin Aspart 1 vial 06/06/18 07:00 06/08/18 11:05 Novolog Vial Sliding Scale - SQ 4 units ACHS SARY Administration Protocol Metoprolol Tartrate 25 mg 06/06/18 10:00 06/08/18 10:26 Lopressor - PO 25 mg BID SARY Administration Mycophenolate Mofetil 750 mg 06/06/18 10:00 06/08/18 10:27 Cellcept - PO 750 mg BID SARY Administration Non-Formulary Medication 12 unit 06/06/18 03:00 06/06/18 03:15 Insulin Aspart [Novolog] SQ 12 unit ASDIR SARY Administration Oxycodone HCl 5 mg 06/08/18 09:10 06/08/18 10:29 Roxicodone - PO 5 mg Q8H PRN Administration PAIN LEVEL 6-10 Ranitidine HCl 150 mg 06/06/18 02:58 Zantac - PO DAILY PRN acid reflux Tacrolimus 3 mg 06/06/18 10:00 06/08/18 10:27 Prograf PO 3 mg BID SARY Administration Terazosin HCl 1 mg 06/06/18 10:00 06/08/18 10:26 Hytrin - PO 1 mg BID SARY Administration IMPRESSION 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 His BP fluctuates. Note pt is on terazosin which is associated with orthostatic hypotension s/p kidney transplant PLAN would do a 24 hour ambulatory BP monitor- as outpatient would restart heather inhibitor and discontinue terazosin should use his compression stockings since he has had several falls and maybe having pooling of blood tacro level check orthostatics monitor renal function would consider tilt table testing MV
[2018-06-08] MEDS ORDERED: PT OWN MED DRAWER 7, Y5N ONE ×2 (13:01→20:26)
[2018-06-08] MEDS: COLCHICINE 0.6 MG TABLET (FP) PO SCH (13:11)
--- NOTE | 2018-06-08 14:23 | PN ---
Progress Note (short form) - Note Progress Note: PULMONARY VSS/AFEBRILE ANICTERIC DISTANT BUT CLEAR B/L BREATH SOUNDS S1S2 BS+ NONTENDER LEFT PATELLAR FRACTURE LABS/MEDS/NOTES/IMAGES REVIEWED AWAITING V/Q SATURDAY R JUAN QUIGLEY Problem List - Problems (1) Anemia Code(s): D64.9 - ANEMIA, UNSPECIFIED (2) D-dimer, elevated Code(s): R79.89 - OTHER SPECIFIED ABNORMAL FINDINGS OF BLOOD CHEMISTRY (3) Dehydration Code(s): E86.0 - DEHYDRATION (4) H/O kidney transplant Code(s): Z94.0 - KIDNEY TRANSPLANT STATUS (5) HTN (hypertension) Code(s): I10 - ESSENTIAL (PRIMARY) HYPERTENSION (6) Lupus Code(s): L93.0 - DISCOID LUPUS ERYTHEMATOSUS (7) Syncope Code(s): R55 - SYNCOPE AND COLLAPSE (8) CKD (chronic kidney disease) Code(s): N18.9 - CHRONIC KIDNEY DISEASE, UNSPECIFIED Qualifiers: Chronic kidney disease stage: stage 4 (severe) Qualified Code(s): N18.4 - Chronic kidney disease, stage 4 (severe) (9) T2DM (type 2 diabetes mellitus) Code(s): E11.9 - TYPE 2 DIABETES MELLITUS WITHOUT COMPLICATIONS
[2018-06-08] MEDS ORDERED: ONDANSETRON 4 MG/2 ML VIAL IVPUSH ONE (17:00)
[2018-06-08] MEDS: ATORVASTATIN CA 10 MG TABLET (FP) PO SCH (21:23)
[2018-06-09] MEDS: INSULIN SLIDING SCALE (NOVOLOG) 1 VIAL SQ SCH ×4 (06:14→21:39)
[2018-06-09] MEDS: HEPARIN NA (PORCINE) 5,000 UNITS/ML 1ML VIAL SQ SCH ×3 (06:16→21:38)
[2018-06-09] MEDS: SODIUM CHLORIDE 1,000 ML IV SCH (06:17)
[2018-06-09 07:18] LABS: BASO % 0.5 % (0-2.0); EOS % 2.5 % (0-4.5); HEMATOCRIT 27.1 % (35.4-49); HEMOGLOBIN 9.2 GM/dL (11.7-16.9); LYMPH % 31.4 % (8-40); MCH 24.8 pg (25.7-33.7); MCHC 34.1 g/dl (32.0-35.9); MEAN CELL VOLUME 72.8 fl (80-96); MEAN PLT VOLUME 8.8 fl (7.5-11.1); MONO % 7.8 % (3.8-10.2); NEUT % 57.8 % (42.8-82.8); PLATELET COUNT 187 K/MM3 (134-434); RBC 3.72 M/mm3 (4.00-5.60); RDW 17.8 % (11.9-15.9); WHITE BLOOD COUNT 5.7 K/mm3 (4.0-10.0)
[2018-06-09 07:47] LABS: ANION GAP 9 MMOL/L (8-16); BLOOD UREA NITROGEN 35 mg/dL (7-18); CALCIUM 8.5 mg/dL (8.5-10.1); CHLORIDE 115 mmol/L (98-107); CO2 20 mmol/L (21-32); CREATININE 2.6 mg/dL (0.55-1.3); GLUCOSE,RANDOM 135 mg/dL (74-106); POTASSIUM 4.6 mmol/L (3.5-5.1); SODIUM 143 mmol/L (136-145)
[2018-06-09] MEDS ORDERED: PT OWN MED DRAWER 7, Y5N ONE ×2 (09:18→21:13)
[2018-06-09] MEDS: DIVALPROEX SODIUM 500 MG TABLET E.C. PO SCH ×2 (09:20→21:38)
[2018-06-09] MEDS: hydrALAZINE HCL 50 MG TABLET (FP) PO SCH ×2 (09:20→21:38)
[2018-06-09] MEDS: COLCHICINE 0.6 MG TABLET (FP) PO SCH (09:20)
[2018-06-09] MEDS: ONDANSETRON 4 MG/2 ML VIAL IVPUSH PRN (09:20)
[2018-06-09] MEDS: METOPROLOL TARTRATE 25 MG TABLET (FP) PO SCH ×2 (09:20→21:39)
[2018-06-09] MEDS: TACROLIMUS ANHYDROUS 1 MG CAPSULE PO SCH ×2 (09:21→21:40)
[2018-06-09] MEDS: TERAZOSIN HCL 1 MG CAPSULE PO SCH ×2 (09:21→21:39)
[2018-06-09] MEDS: MYCOPHENOLATE MOFETIL 250 MG CAPSULE PO SCH ×2 (09:30→21:38)
[2018-06-09] MEDS: ACETAMINOPHEN 325 MG TABLET (FP) PO PRN ×2 (10:25→17:25)
--- NOTE | 2018-06-09 11:09 | PN ---
Progress Note (short form) - Note Progress Note: PULMONARY Denies shortness of breath, chest pain or palpitations. Feels dizzy. Vital Signs Period Temp Pulse Resp BP Sys/South Pulse Ox Last 24 Hr 97.7 F-99.0 F 59-74 18-20 119-167/59-85 97 Gen: NAD at rest Heart: RRR Lung: decreased breath sounds at the bases Abd: soft, nontender Ext: no edema CBC, BMP 06/09/18 07:00 06/09/18 07:00 Active Medications Acetaminophen (Tylenol -) 650 mg PO Q6H PRN PRN Reason: PAIN Last Admin: 06/09/18 10:25 Dose: 650 mg Atorvastatin Calcium (Lipitor -) 10 mg PO HS [facility] Last Admin: 06/08/18 21:23 Dose: 10 mg Colchicine (Colcrys -) 0.6 mg PO DAILY [facility] Last Admin: 06/09/18 09:20 Dose: 0.6 mg Divalproex Sodium (Depakote -) 500 mg PO BID [facility] Last Admin: 06/09/18 09:20 Dose: 500 mg Docusate Sodium (Colace -) 100 mg PO BID PRN PRN Reason: CONSTIPATION Last Admin: 06/08/18 13:11 Dose: 100 mg Ergocalciferol (Drisdol -) 50,000 unit PO Q30D@1000 [facility] Last Admin: 06/06/18 23:21 Dose: 50,000 unit Heparin Sodium (Porcine) (Heparin -) 5,000 unit SQ TID [facility] Last Admin: 06/09/18 06:16 Dose: 5,000 unit Hydralazine HCl (Apresoline -) 50 mg PO BID [facility] Last Admin: 06/09/18 09:20 Dose: 50 mg Sodium Chloride (Normal Saline -) 1,000 mls @ 50 mls/hr IV ASDIR [facility] Last Admin: 06/09/18 06:17 Dose: 50 mls/hr Insulin Aspart (Novolog Vial Sliding Scale -) 1 vial SQ ACHS [facility]; Protocol Last Admin: 06/09/18 06:14 Dose: Not Given Metoprolol Tartrate (Lopressor -) 25 mg PO BID [facility] Last Admin: 06/09/18 09:20 Dose: 25 mg Mycophenolate Mofetil (Cellcept -) 750 mg PO BID [facility] Last Admin: 06/09/18 09:30 Dose: 750 mg Non-Formulary Medication (Insulin Aspart [Novolog]) 12 unit SQ ASDIR [facility] Last Admin: 06/06/18 03:15 Dose: 12 unit Ondansetron HCl (Zofran Injection) 4 mg IVPUSH Q4H PRN PRN Reason: NAUSEA AND/OR VOMITING Last Admin: 06/09/18 09:20 Dose: 4 mg Oxycodone HCl (Roxicodone -) 5 mg PO Q8H PRN PRN Reason: PAIN LEVEL 6-10 Last Admin: 06/08/18 10:29 Dose: 5 mg Ranitidine HCl (Zantac -) 150 mg PO DAILY PRN PRN Reason: acid reflux Tacrolimus (Prograf) 3 mg PO BID [facility] Last Admin: 06/09/18 09:21 Dose: 3 mg Terazosin HCl (Hytrin -) 1 mg PO BID [facility] Last Admin: 06/09/18 09:21 Dose: 1 mg A/P Syncope likely from orthostatic hypotension Lupus HTN DM h/o Renal Transplant Acute on Chronic Renal Failure Elevated D-dimer Recent Patellar Fracture - pt without chest pain or shortness of breath, has not been tachycardic and saturating 98% on room air. Pt also with negative LE dopplers and an unremarkable echocardiogram, documented to be orthostatic in the ER so alternative diagnosis is evident. Pt with clinically low suspicion for VTE, can defer V/Q scan - continue IVF - monitor urine output, creatinine - DVT prophylaxis
[2018-06-09] MEDS ORDERED: INSULIN (NOVOLOG) ASPART 100 UNITS/ML 10ML VIAL ONE ×4 (11:31→21:14)
--- NOTE | 2018-06-09 12:19 | DS ---
Physical Examination Vital Signs: Vital Signs Temperature 37.1 C 06/09/18 10:00 Pulse Rate 63 06/09/18 10:00 Respiratory Rate 18 06/09/18 10:00 Blood Pressure 143/75 06/09/18 10:00 O2 Sat by Pulse Oximetry (%) 97 06/09/18 09:00 Constitutional: Yes: No Distress, Calm, Obese Cardiovascular: Yes: Regular Rate and Rhythm. No: Gallop, Murmur, Rub Respiratory: Yes: Regular, CTA Bilaterally. No: Rales, Rhonchi, Wheezes Gastrointestinal: Yes: Normal Bowel Sounds, Soft. No: Distention, Tenderness Extremities: Yes: WNL Edema: No Labs: CBC, BMP 06/09/18 07:00 06/09/18 07:00 Discharge Summary Reason For Visit: ACUTE KIDNEY INJURY Current Active Problems KAMILLA (acute kidney injury) (Acute) Anemia (Acute) CKD (chronic kidney disease) (Acute) D-dimer, elevated (Acute) Dehydration (Acute) H/O kidney transplant (Acute) HTN (hypertension) (Acute) Lupus (Acute) Syncope (Acute) T2DM (type 2 diabetes mellitus) (Acute) Hospital Course: (1) Syncope Code(s): R55 - SYNCOPE AND COLLAPSE (2) H/O kidney transplant Code(s): Z94.0 - KIDNEY TRANSPLANT STATUS (3) HTN (hypertension) Code(s): I10 - ESSENTIAL (PRIMARY) HYPERTENSION (4) Lupus Code(s): L93.0 - DISCOID LUPUS ERYTHEMATOSUS (5) Anemia Code(s): D64.9 - ANEMIA, UNSPECIFIED (6) CKD (chronic kidney disease) Code(s): N18.9 - CHRONIC KIDNEY DISEASE, UNSPECIFIED Qualifiers: Chronic kidney disease stage: stage 4 (severe) Qualified Code(s): N18.4 - Chronic kidney disease, stage 4 (severe) (7) KAMILLA (acute kidney injury) Code(s): N17.9 - ACUTE KIDNEY FAILURE, UNSPECIFIED (8) Dehydration Code(s): E86.0 - DEHYDRATION (9) T2DM (type 2 diabetes mellitus) Code(s): E11.9 - TYPE 2 DIABETES MELLITUS WITHOUT COMPLICATIONS (10) D-dimer, elevated Code(s): R79.89 - OTHER SPECIFIED ABNORMAL FINDINGS OF BLOOD CHEMISTRY Mr Woo is a very pleasant 62 year old male who came in with syncope secondary to dehydration and KAMILLA on CKD. He was admitted to the hospital. ECHO and carotid dopplers were performed and read reviewed. Because he was dehydrated and had KAMILLA, both his lasix and his ARB were held. He was gently hydrated with IVF and his symptoms resolved. He was seen by PT and was stable. He was noted to have elevated D-dimer, ECHO did not show right heart strain and duplex dopplers were negative. Case d/w pulmonary who stated V/Q scan was not indicated so this was deferred. Currently patient doing well, however considering his difficulty to ambulate at home he is willing to go to a SNF for rehabilitation. I agree that patient would benefit from SNF placement for rehab until he has follow up with his orthopedic surgery. Patient is currently stable for discharge 35 minutes spent in preparation of this discharge Condition: Stable - Instructions Diet, Activity, Other Instructions: diabetic diet. Up with assistance, further activity per PT at SNF. Disposition: RESIDENTIAL FACILITY - Home Medications Comprehensive Discharge Medication List: Ambulatory Orders Amlodipine Besylate 10 mg PO DAILY 06/05/18 Colchicine 0.6 mg PO DAILY 06/05/18 Divalproex [Depakote -] 500 mg PO BID 06/05/18 Ergocalciferol (Vitamin D2) [Vitamin D2] 50,000 unit PO DAILY 06/05/18 Furosemide 40 mg PO BID 06/05/18 Hydralazine HCl 50 mg PO BID 06/05/18 Insulin Aspart [Novolog] 12 unit SQ ASDIR 06/05/18 Insulin Degludec [Tresiba Flextouch U-100] 65 unit SQ HS 06/05/18 Lisinopril 5 mg PO DAILY 06/05/18 Magnesium Oxide [Magnesium] 400 mg PO BID 06/05/18 Metoprolol Tartrate 25 mg PO BID 06/05/18 Mycophenolate Mofetil [Cellcept] 750 mg PO BID 06/05/18 Ranitidine HCl [Zantac] 150 mg PO ASDIR PRN 06/05/18 Simvastatin 20 mg PO DAILY 06/05/18 Sodium Bicarbonate - 10 g PO BID 06/05/18 Tacrolimus [Prograf] 3 mg PO BID 06/05/18 Terazosin HCl [Hytrin -] 1 mg PO BID 06/05/18 Docusate Sodium [Colace -] 100 mg PO BID PRN capsule 06/09/18 oxyCODONE HCL [Roxicodone -] 5 mg PO Q8H PRN tablet MDD 15mg 06/09/18
--- NOTE | 2018-06-09 13:56 | PN ---
Progress Note, Physician History of Present Illness: Pt seen and examined at bedside. He is awake and alert. He denies shortness of breath. - Current Medication List Current Medications: Active Medications Acetaminophen (Tylenol -) 650 mg PO Q6H PRN PRN Reason: PAIN Last Admin: 06/09/18 10:25 Dose: 650 mg Atorvastatin Calcium (Lipitor -) 10 mg PO HS [facility] Last Admin: 06/08/18 21:23 Dose: 10 mg Colchicine (Colcrys -) 0.6 mg PO DAILY [facility] Last Admin: 06/09/18 09:20 Dose: 0.6 mg Divalproex Sodium (Depakote -) 500 mg PO BID [facility] Last Admin: 06/09/18 09:20 Dose: 500 mg Docusate Sodium (Colace -) 100 mg PO BID PRN PRN Reason: CONSTIPATION Last Admin: 06/08/18 13:11 Dose: 100 mg Ergocalciferol (Drisdol -) 50,000 unit PO Q30D@1000 [facility] Last Admin: 06/06/18 23:21 Dose: 50,000 unit Heparin Sodium (Porcine) (Heparin -) 5,000 unit SQ TID [facility] Last Admin: 06/09/18 06:16 Dose: 5,000 unit Hydralazine HCl (Apresoline -) 50 mg PO BID [facility] Last Admin: 06/09/18 09:20 Dose: 50 mg Sodium Chloride (Normal Saline -) 1,000 mls @ 50 mls/hr IV ASDIR [facility] Last Admin: 06/09/18 06:17 Dose: 50 mls/hr Insulin Aspart (Novolog Vial Sliding Scale -) 1 vial SQ [facility]; Protocol Last Admin: 06/09/18 11:33 Dose: 2 units Metoprolol Tartrate (Lopressor -) 25 mg PO BID [facility] Last Admin: 06/09/18 09:20 Dose: 25 mg Mycophenolate Mofetil (Cellcept -) 750 mg PO BID [facility] Last Admin: 06/09/18 09:30 Dose: 750 mg Non-Formulary Medication (Insulin Aspart [Novolog]) 12 unit SQ ASDIR [facility] Last Admin: 06/06/18 03:15 Dose: 12 unit Ondansetron HCl (Zofran Injection) 4 mg IVPUSH Q4H PRN PRN Reason: NAUSEA AND/OR VOMITING Last Admin: 06/09/18 09:20 Dose: 4 mg Oxycodone HCl (Roxicodone -) 5 mg PO Q8H PRN PRN Reason: PAIN LEVEL 6-10 Last Admin: 06/08/18 10:29 Dose: 5 mg Ranitidine HCl (Zantac -) 150 mg PO DAILY PRN PRN Reason: acid reflux Tacrolimus (Prograf) 3 mg PO BID [facility] Last Admin: 06/09/18 09:21 Dose: 3 mg Terazosin HCl (Hytrin -) 1 mg PO BID [facility] Last Admin: 06/09/18 09:21 Dose: 1 mg - Objective Vital Signs: Vital Signs Temperature 98.7 F 06/09/18 10:00 Pulse Rate 63 06/09/18 10:00 Respiratory Rate 18 06/09/18 10:00 Blood Pressure 143/75 06/09/18 10:00 O2 Sat by Pulse Oximetry (%) 97 06/09/18 09:00 Constitutional: Yes: Calm Eyes: Yes: Conjunctiva Clear HENT: Yes: Atraumatic Neck: Yes: Supple Cardiovascular: Yes: S1, S2 Respiratory: Yes: CTA Bilaterally Gastrointestinal: Yes: Normal Bowel Sounds, Soft Genitourinary: Yes: WNL Musculoskeletal: Yes: Other (left leg pain) Edema: LLE: Trace, RLE: Trace Neurological: Yes: Oriented Psychiatric: Yes: Oriented Labs: CBC, BMP 06/09/18 07:00 06/09/18 07:00 INR, PTT INR 1.06 (0.83-1.09) 06/05/18 16:22 Problem List - Problems (1) KAMILLA (acute kidney injury) Code(s): N17.9 - ACUTE KIDNEY FAILURE, UNSPECIFIED (2) CKD (chronic kidney disease) Code(s): N18.9 - CHRONIC KIDNEY DISEASE, UNSPECIFIED Qualifiers: Chronic kidney disease stage: stage 4 (severe) Qualified Code(s): N18.4 - Chronic kidney disease, stage 4 (severe) Assessment/Plan Current Medications Generic Name Dose Route Start Last Admin Trade Name Freq PRN Reason Stop Dose Admin Acetaminophen 650 mg 06/08/18 09:12 06/09/18 10:25 Tylenol - PO 650 mg Q6H PRN Administration PAIN Atorvastatin Calcium 10 mg 06/06/18 22:00 06/08/18 21:23 Lipitor - PO 10 mg HS SARY Administration Colchicine 0.6 mg 06/08/18 10:00 06/09/18 09:20 Colcrys - PO 0.6 mg DAILY SARY Administration Divalproex Sodium 500 mg 06/06/18 10:00 06/09/18 09:20 Depakote - PO 500 mg BID SARY Administration Docusate Sodium 100 mg 06/08/18 09:12 06/08/18 13:11 Colace - PO 100 mg BID PRN Administration CONSTIPATION Ergocalciferol 50,000 unit 06/06/18 20:15 06/06/18 23:21 Drisdol - PO 50,000 unit Q30D@1000 SARY Administration Heparin Sodium (Porcine) 5,000 unit 06/06/18 06:00 06/09/18 06:16 Heparin - SQ 5,000 unit TID SARY Administration Hydralazine HCl 50 mg 06/06/18 10:00 06/09/18 09:20 Apresoline - PO 50 mg BID SARY Administration Sodium Chloride 1,000 mls @ 50 mls/hr 06/08/18 13:00 06/09/18 06:17 Normal Saline - IV 50 mls/hr ASDIR SARY Administration Insulin Aspart 1 vial 06/06/18 07:00 06/09/18 11:33 Novolog Vial Sliding Scale - SQ 2 units ACHS SARY Administration Protocol Metoprolol Tartrate 25 mg 06/06/18 10:00 06/09/18 09:20 Lopressor - PO 25 mg BID SARY Administration Mycophenolate Mofetil 750 mg 06/06/18 10:00 06/09/18 09:30 Cellcept - PO 750 mg BID SARY Administration Non-Formulary Medication 12 unit 06/06/18 03:00 06/06/18 03:15 Insulin Aspart [Novolog] SQ 12 unit ASDIR SARY Administration Ondansetron HCl 4 mg 06/09/18 09:03 06/09/18 09:20 Zofran Injection IVPUSH 4 mg Q4H PRN Administration NAUSEA AND/OR VOMITING Oxycodone HCl 5 mg 06/08/18 09:10 06/08/18 10:29 Roxicodone - PO 5 mg Q8H PRN Administration PAIN LEVEL 6-10 Ranitidine HCl 150 mg 06/06/18 02:58 Zantac - PO DAILY PRN acid reflux Tacrolimus 3 mg 06/06/18 10:00 06/09/18 09:21 Prograf PO 3 mg BID SARY Administration Terazosin HCl 1 mg 06/06/18 10:00 06/09/18 09:21 Hytrin - PO 1 mg BID SARY Administration Laboratory Tests 06/06/18 09:00 Tacrolimus Pending Impression 1. CKD 2. kidney transplant 3. DM 4. HTN 5. leg fracture 6. HLD 7. 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
[2018-06-09] MEDS: ATORVASTATIN CA 10 MG TABLET (FP) PO SCH (21:39)
[2018-06-09] MEDS ORDERED: traMADol HCL 50 MG TABLET PO ONE (21:46)
[2018-06-10] MEDS: SODIUM CHLORIDE 1,000 ML IV SCH ×2 (02:16→13:00)
[2018-06-10] MEDS: HEPARIN NA (PORCINE) 5,000 UNITS/ML 1ML VIAL SQ SCH ×3 (06:53→21:49)
[2018-06-10] MEDS: INSULIN SLIDING SCALE (NOVOLOG) 1 VIAL SQ SCH ×4 (06:56→21:50)
--- NOTE | 2018-06-10 10:21 | PN ---
Progress Note (short form) - Note Progress Note: PULMONARY Denies shortness of breath, chest pain or palpitations. No further dizziness today. Vital Signs Period Temp Pulse Resp BP Sys/South Pulse Ox Last 24 Hr 98.2 F-99.0 F 67-73 20-20 144-162/58-78 Gen: NAD at rest Heart: RRR Lung: decreased breath sounds at the bases Abd: soft, nontender Ext: no edema CBC, BMP 06/09/18 07:00 06/09/18 07:00 Active Medications Acetaminophen (Tylenol -) 650 mg PO Q6H PRN PRN Reason: PAIN Last Admin: 06/09/18 17:25 Dose: 650 mg Atorvastatin Calcium (Lipitor -) 10 mg PO HS [facility] Last Admin: 06/09/18 21:39 Dose: 10 mg Colchicine (Colcrys -) 0.6 mg PO DAILY [facility] Last Admin: 06/09/18 09:20 Dose: 0.6 mg Divalproex Sodium (Depakote -) 500 mg PO BID [facility] Last Admin: 06/09/18 21:38 Dose: 500 mg Docusate Sodium (Colace -) 100 mg PO BID PRN PRN Reason: CONSTIPATION Last Admin: 06/08/18 13:11 Dose: 100 mg Ergocalciferol (Drisdol -) 50,000 unit PO Q30D@1000 [facility] Last Admin: 06/06/18 23:21 Dose: 50,000 unit Heparin Sodium (Porcine) (Heparin -) 5,000 unit SQ TID [facility] Last Admin: 06/10/18 06:53 Dose: 5,000 unit Hydralazine HCl (Apresoline -) 50 mg PO BID [facility] Last Admin: 06/09/18 21:38 Dose: 50 mg Sodium Chloride (Normal Saline -) 1,000 mls @ 50 mls/hr IV ASDIR [facility] Last Admin: 06/10/18 02:16 Dose: 50 mls/hr Insulin Aspart (Novolog Vial Sliding Scale -) 1 vial SQ ACHS [facility]; Protocol Last Admin: 06/10/18 06:56 Dose: Not Given Metoprolol Tartrate (Lopressor -) 25 mg PO BID [facility] Last Admin: 06/09/18 21:39 Dose: 25 mg Mycophenolate Mofetil (Cellcept -) 750 mg PO BID [facility] Last Admin: 06/09/18 21:38 Dose: 750 mg Non-Formulary Medication (Insulin Aspart [Novolog]) 12 unit SQ ASDIR [facility] Last Admin: 06/06/18 03:15 Dose: 12 unit Ondansetron HCl (Zofran Injection) 4 mg IVPUSH Q4H PRN PRN Reason: NAUSEA AND/OR VOMITING Last Admin: 06/09/18 09:20 Dose: 4 mg Oxycodone HCl (Roxicodone -) 5 mg PO Q8H PRN PRN Reason: PAIN LEVEL 6-10 Last Admin: 06/08/18 10:29 Dose: 5 mg Ranitidine HCl (Zantac -) 150 mg PO DAILY PRN PRN Reason: acid reflux Tacrolimus (Prograf) 3 mg PO BID [facility] Last Admin: 06/09/18 21:40 Dose: 3 mg Terazosin HCl (Hytrin -) 1 mg PO BID [facility] Last Admin: 06/09/18 21:39 Dose: 1 mg A/P Syncope likely from orthostatic hypotension Lupus HTN DM h/o Renal Transplant Acute on Chronic Renal Failure Elevated D-dimer Recent Patellar Fracture - pt without chest pain or shortness of breath, has not been tachycardic and saturating 98% on room air. Pt also with negative LE dopplers and an unremarkable echocardiogram, documented to be orthostatic in the ER so alternative diagnosis is evident. Pt with clinically low suspicion for VTE, can defer V/Q scan - continue IVF - monitor urine output, creatinine - DVT prophylaxis - d/c planning in progress
[2018-06-10] MEDS: METOPROLOL TARTRATE 25 MG TABLET (FP) PO SCH ×2 (10:22→21:50)
[2018-06-10] MEDS: COLCHICINE 0.6 MG TABLET (FP) PO SCH (10:22)
[2018-06-10] MEDS: hydrALAZINE HCL 50 MG TABLET (FP) PO SCH ×2 (10:22→21:49)
[2018-06-10] MEDS: TERAZOSIN HCL 1 MG CAPSULE PO SCH ×2 (10:22→21:50)
[2018-06-10] MEDS: DIVALPROEX SODIUM 500 MG TABLET E.C. PO SCH ×2 (10:23→21:49)
[2018-06-10] MEDS: MYCOPHENOLATE MOFETIL 250 MG CAPSULE PO SCH ×2 (10:23→21:49)
[2018-06-10] MEDS: TACROLIMUS ANHYDROUS 1 MG CAPSULE PO SCH ×2 (10:23→21:50)
[2018-06-10] MEDS ORDERED: INSULIN (NOVOLOG) ASPART 100 UNITS/ML 10ML VIAL ONE ×2 (10:57→21:06)
--- NOTE | 2018-06-10 11:54 | PN ---
Progress Note, Physician Chief Complaint: Mr Woo complains of pain in his knee but this is unchanged. No cp, sob, n/v. - Current Medication List Current Medications: Active Medications Acetaminophen (Tylenol -) 650 mg PO Q6H PRN PRN Reason: PAIN Last Admin: 06/09/18 17:25 Dose: 650 mg Atorvastatin Calcium (Lipitor -) 10 mg PO HS [facility] Last Admin: 06/09/18 21:39 Dose: 10 mg Colchicine (Colcrys -) 0.6 mg PO DAILY [facility] Last Admin: 06/10/18 10:22 Dose: 0.6 mg Divalproex Sodium (Depakote -) 500 mg PO BID [facility] Last Admin: 06/10/18 10:23 Dose: 500 mg Docusate Sodium (Colace -) 100 mg PO BID PRN PRN Reason: CONSTIPATION Last Admin: 06/08/18 13:11 Dose: 100 mg Ergocalciferol (Drisdol -) 50,000 unit PO Q30D@1000 [facility] Last Admin: 06/06/18 23:21 Dose: 50,000 unit Heparin Sodium (Porcine) (Heparin -) 5,000 unit SQ TID [facility] Last Admin: 06/10/18 06:53 Dose: 5,000 unit Hydralazine HCl (Apresoline -) 50 mg PO BID [facility] Last Admin: 06/10/18 10:22 Dose: 50 mg Sodium Chloride (Normal Saline -) 1,000 mls @ 50 mls/hr IV ASDIR [facility] Last Admin: 06/10/18 02:16 Dose: 50 mls/hr Insulin Aspart (Novolog Vial Sliding Scale -) 1 vial SQ [facility]; Protocol Last Admin: 06/10/18 06:56 Dose: Not Given Metoprolol Tartrate (Lopressor -) 25 mg PO BID [facility] Last Admin: 06/10/18 10:22 Dose: 25 mg Mycophenolate Mofetil (Cellcept -) 750 mg PO BID [facility] Last Admin: 06/10/18 10:23 Dose: 750 mg Non-Formulary Medication (Insulin Aspart [Novolog]) 12 unit SQ ASDIR [facility] Last Admin: 06/06/18 03:15 Dose: 12 unit Ondansetron HCl (Zofran Injection) 4 mg IVPUSH Q4H PRN PRN Reason: NAUSEA AND/OR VOMITING Last Admin: 06/09/18 09:20 Dose: 4 mg Oxycodone HCl (Roxicodone -) 5 mg PO Q8H PRN PRN Reason: PAIN LEVEL 6-10 Last Admin: 06/08/18 10:29 Dose: 5 mg Ranitidine HCl (Zantac -) 150 mg PO DAILY PRN PRN Reason: acid reflux Tacrolimus (Prograf) 3 mg PO BID [facility] Last Admin: 06/10/18 10:23 Dose: 3 mg Terazosin HCl (Hytrin -) 1 mg PO BID [facility] Last Admin: 06/10/18 10:22 Dose: 1 mg - Objective Vital Signs: Vital Signs Temperature 36.9 C 06/10/18 10:00 Pulse Rate 68 06/10/18 10:00 Respiratory Rate 20 06/10/18 10:00 Blood Pressure 154/68 06/10/18 10:00 O2 Sat by Pulse Oximetry (%) 97 06/09/18 09:00 Constitutional: Yes: No Distress, Calm, Obese Cardiovascular: Yes: Regular Rate and Rhythm. No: Gallop, Murmur, Rub Respiratory: Yes: Regular, CTA Bilaterally. No: Rales, Rhonchi, Wheezes Gastrointestinal: Yes: Normal Bowel Sounds, Soft. No: Distention, Tenderness Extremities: Yes: WNL Edema: No Labs: CBC, BMP 06/09/18 07:00 06/09/18 07:00 INR, PTT INR 1.06 (0.83-1.09) 06/05/18 16:22 Assessment/Plan (1) Syncope Code(s): R55 - SYNCOPE AND COLLAPSE (2) H/O kidney transplant Code(s): Z94.0 - KIDNEY TRANSPLANT STATUS (3) HTN (hypertension) Code(s): I10 - ESSENTIAL (PRIMARY) HYPERTENSION (4) Lupus Code(s): L93.0 - DISCOID LUPUS ERYTHEMATOSUS (5) Anemia Code(s): D64.9 - ANEMIA, UNSPECIFIED (6) CKD (chronic kidney disease) Code(s): N18.9 - CHRONIC KIDNEY DISEASE, UNSPECIFIED Qualifiers: Chronic kidney disease stage: stage 4 (severe) Qualified Code(s): N18.4 - Chronic kidney disease, stage 4 (severe) (7) KAMILLA (acute kidney injury) Code(s): N17.9 - ACUTE KIDNEY FAILURE, UNSPECIFIED (8) Dehydration Code(s): E86.0 - DEHYDRATION (9) T2DM (type 2 diabetes mellitus) Code(s): E11.9 - TYPE 2 DIABETES MELLITUS WITHOUT COMPLICATIONS (10) D-dimer, elevated Code(s): R79.89 - OTHER SPECIFIED ABNORMAL FINDINGS OF BLOOD CHEMISTRY Plan -continue current management -patient is medically stable -awaiting SNF placement
[2018-06-10] MEDS: ACETAMINOPHEN 325 MG TABLET (FP) PO PRN (13:03)
--- NOTE | 2018-06-10 15:48 | PN ---
Progress Note, Physician History of Present Illness: Pt seen and examined at bedside. He is awake and alert. He denies dysuria or hematuria. - Current Medication List Current Medications: Active Medications Acetaminophen (Tylenol -) 650 mg PO Q6H PRN PRN Reason: PAIN Last Admin: 06/10/18 13:03 Dose: 650 mg Atorvastatin Calcium (Lipitor -) 10 mg PO HS [facility] Last Admin: 06/09/18 21:39 Dose: 10 mg Colchicine (Colcrys -) 0.6 mg PO DAILY [facility] Last Admin: 06/10/18 10:22 Dose: 0.6 mg Divalproex Sodium (Depakote -) 500 mg PO BID [facility] Last Admin: 06/10/18 10:23 Dose: 500 mg Docusate Sodium (Colace -) 100 mg PO BID PRN PRN Reason: CONSTIPATION Last Admin: 06/08/18 13:11 Dose: 100 mg Ergocalciferol (Drisdol -) 50,000 unit PO Q30D@1000 [facility] Last Admin: 06/06/18 23:21 Dose: 50,000 unit Heparin Sodium (Porcine) (Heparin -) 5,000 unit SQ TID [facility] Last Admin: 06/10/18 13:07 Dose: 5,000 unit Hydralazine HCl (Apresoline -) 50 mg PO BID [facility] Last Admin: 06/10/18 10:22 Dose: 50 mg Insulin Aspart (Novolog Vial Sliding Scale -) 1 vial SQ ACHS [facility]; Protocol Last Admin: 06/10/18 11:51 Dose: 4 units Metoprolol Tartrate (Lopressor -) 25 mg PO BID [facility] Last Admin: 06/10/18 10:22 Dose: 25 mg Mycophenolate Mofetil (Cellcept -) 750 mg PO BID [facility] Last Admin: 06/10/18 10:23 Dose: 750 mg Non-Formulary Medication (Insulin Aspart [Novolog]) 12 unit SQ ASDIR [facility] Last Admin: 06/06/18 03:15 Dose: 12 unit Ondansetron HCl (Zofran Injection) 4 mg IVPUSH Q4H PRN PRN Reason: NAUSEA AND/OR VOMITING Last Admin: 06/09/18 09:20 Dose: 4 mg Oxycodone HCl (Roxicodone -) 5 mg PO Q8H PRN PRN Reason: PAIN LEVEL 6-10 Last Admin: 06/08/18 10:29 Dose: 5 mg Ranitidine HCl (Zantac -) 150 mg PO DAILY PRN PRN Reason: acid reflux Tacrolimus (Prograf) 3 mg PO BID [facility] Last Admin: 06/10/18 10:23 Dose: 3 mg Terazosin HCl (Hytrin -) 1 mg PO BID [facility] Last Admin: 06/10/18 10:22 Dose: 1 mg - Objective Vital Signs: Vital Signs Temperature 98.5 F 06/10/18 13:32 Pulse Rate 64 06/10/18 13:32 Respiratory Rate 16 06/10/18 13:32 Blood Pressure 158/73 06/10/18 13:32 O2 Sat by Pulse Oximetry (%) 97 06/09/18 09:00 Constitutional: Yes: Calm Eyes: Yes: Conjunctiva Clear HENT: Yes: Atraumatic Cardiovascular: Yes: S1, S2 Respiratory: Yes: CTA Bilaterally Gastrointestinal: Yes: Normal Bowel Sounds, Soft Genitourinary: Yes: WNL Musculoskeletal: Yes: Other (left leg pain) Edema: No Neurological: Yes: Oriented Psychiatric: Yes: Oriented Labs: CBC, BMP 06/09/18 07:00 06/09/18 07:00 INR, PTT INR 1.06 (0.83-1.09) 06/05/18 16:22 Problem List - Problems (1) KAMILLA (acute kidney injury) Code(s): N17.9 - ACUTE KIDNEY FAILURE, UNSPECIFIED (2) CKD (chronic kidney disease) Code(s): N18.9 - CHRONIC KIDNEY DISEASE, UNSPECIFIED Qualifiers: Chronic kidney disease stage: stage 4 (severe) Qualified Code(s): N18.4 - Chronic kidney disease, stage 4 (severe) Assessment/Plan Current Medications Generic Name Dose Route Start Last Admin Trade Name Freq PRN Reason Stop Dose Admin Acetaminophen 650 mg 06/08/18 09:12 06/10/18 13:03 Tylenol - PO 650 mg Q6H PRN Administration PAIN Atorvastatin Calcium 10 mg 06/06/18 22:00 06/09/18 21:39 Lipitor - PO 10 mg HS [facility] Administration Colchicine 0.6 mg 06/08/18 10:00 06/10/18 10:22 Colcrys - PO 0.6 mg DAILY [facility] Administration Divalproex Sodium 500 mg 06/06/18 10:00 06/10/18 10:23 Depakote - PO 500 mg BID [facility] Administration Docusate Sodium 100 mg 06/08/18 09:12 06/08/18 13:11 Colace - PO 100 mg BID PRN Administration CONSTIPATION Ergocalciferol 50,000 unit 06/06/18 20:15 06/06/18 23:21 Drisdol - PO 50,000 unit Q30D@1000 [facility] Administration Heparin Sodium (Porcine) 5,000 unit 06/06/18 06:00 06/10/18 13:07 Heparin - SQ 5,000 unit TID [facility] Administration Hydralazine HCl 50 mg 06/06/18 10:00 06/10/18 10:22 Apresoline - PO 50 mg BID [facility] Administration Insulin Aspart 1 vial 06/06/18 07:00 06/10/18 11:51 Novolog Vial Sliding Scale - SQ 4 units ACHS [facility] Administration Protocol Metoprolol Tartrate 25 mg 06/06/18 10:00 06/10/18 10:22 Lopressor - PO 25 mg BID [facility] Administration Mycophenolate Mofetil 750 mg 06/06/18 10:00 06/10/18 10:23 Cellcept - PO 750 mg BID [facility] Administration Non-Formulary Medication 12 unit 06/06/18 03:00 06/06/18 03:15 Insulin Aspart [Novolog] SQ 12 unit ASDIR [facility] Administration Ondansetron HCl 4 mg 06/09/18 09:03 06/09/18 09:20 Zofran Injection IVPUSH 4 mg Q4H PRN Administration NAUSEA AND/OR VOMITING Oxycodone HCl 5 mg 06/08/18 09:10 06/08/18 10:29 Roxicodone - PO 5 mg Q8H PRN Administration PAIN LEVEL 6-10 Ranitidine HCl 150 mg 06/06/18 02:58 Zantac - PO DAILY PRN acid reflux Tacrolimus 3 mg 06/06/18 10:00 06/10/18 10:23 Prograf PO 3 mg BID [facility] Administration Terazosin HCl 1 mg 06/06/18 10:00 06/10/18 10:22 Hytrin - PO 1 mg BID [facility] Administration Laboratory Tests 06/06/18 06/09/18 06/10/18 09:00 23:30 07:00 Tacrolimus 1.1 L Pending Pending Impression 1. CKD 2. kidney transplant 3. DM 4. HTN 5. leg fracture 6. HLD 7. Sjogren's Syndrome Plan - prograf level came back very low. 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
[2018-06-10] MEDS: ATORVASTATIN CA 10 MG TABLET (FP) PO SCH (21:50)
[2018-06-11] MEDS: ACETAMINOPHEN 325 MG TABLET (FP) PO PRN ×2 (01:21→09:54)
[2018-06-11] MEDS: INSULIN SLIDING SCALE (NOVOLOG) 1 VIAL SQ SCH ×4 (06:05→22:32)
[2018-06-11] MEDS: HEPARIN NA (PORCINE) 5,000 UNITS/ML 1ML VIAL SQ SCH ×3 (06:07→22:23)
[2018-06-11 07:42] LABS: BASO % 0.4 % (0-2.0); EOS % 2.3 % (0-4.5); LYMPH % 34.8 % (8-40); MCH 23.5 pg (25.7-33.7); MCHC 32.1 g/dl (32.0-35.9); MEAN CELL VOLUME 73.1 fl (80-96); MEAN PLT VOLUME 9.3 fl (7.5-11.1); MONO % 6.2 % (3.8-10.2); NEUT % 56.3 % (42.8-82.8); PLATELET COUNT 157 K/MM3 (134-434); RBC 3.83 M/mm3 (4.00-5.60); RDW 18.1 % (11.9-15.9)
[2018-06-11 08:05] LABS: ANION GAP 10 MMOL/L (8-16); BLOOD UREA NITROGEN 30 mg/dL (7-18); CHLORIDE 113 mmol/L (98-107); CO2 20 mmol/L (21-32); CREATININE 2.8 mg/dL (0.55-1.3); GLUCOSE,RANDOM 116 mg/dL (74-106); MAGNESIUM 1.9 mg/dL (1.8-2.4); POTASSIUM 4.1 mmol/L (3.5-5.1); SODIUM 143 mmol/L (136-145)
--- NOTE | 2018-06-11 09:00 | PN ---
Progress Note, Physician Chief Complaint: Comfortable not in acute distress still C/O Left knee pain - Current Medication List Current Medications: Active Medications Acetaminophen (Tylenol -) 650 mg PO Q6H PRN PRN Reason: PAIN Last Admin: 06/11/18 01:21 Dose: 650 mg Atorvastatin Calcium (Lipitor -) 10 mg PO HS [facility] Last Admin: 06/10/18 21:50 Dose: 10 mg Colchicine (Colcrys -) 0.6 mg PO DAILY [facility] Last Admin: 06/10/18 10:22 Dose: 0.6 mg Divalproex Sodium (Depakote -) 500 mg PO BID [facility] Last Admin: 06/10/18 21:49 Dose: 500 mg Docusate Sodium (Colace -) 100 mg PO BID PRN PRN Reason: CONSTIPATION Last Admin: 06/08/18 13:11 Dose: 100 mg Ergocalciferol (Drisdol -) 50,000 unit PO Q30D@1000 [facility] Last Admin: 06/06/18 23:21 Dose: 50,000 unit Heparin Sodium (Porcine) (Heparin -) 5,000 unit SQ TID [facility] Last Admin: 06/11/18 06:07 Dose: 5,000 unit Hydralazine HCl (Apresoline -) 50 mg PO BID [facility] Last Admin: 06/10/18 21:49 Dose: 50 mg Insulin Aspart (Novolog Vial Sliding Scale -) 1 vial SQ ACHS [facility]; Protocol Last Admin: 06/11/18 06:05 Dose: Not Given Metoprolol Tartrate (Lopressor -) 25 mg PO BID [facility] Last Admin: 06/10/18 21:50 Dose: 25 mg Mycophenolate Mofetil (Cellcept -) 750 mg PO BID [facility] Last Admin: 06/10/18 21:49 Dose: 750 mg Non-Formulary Medication (Insulin Aspart [Novolog]) 12 unit SQ ASDIR [facility] Last Admin: 06/06/18 03:15 Dose: 12 unit Ondansetron HCl (Zofran Injection) 4 mg IVPUSH Q4H PRN PRN Reason: NAUSEA AND/OR VOMITING Last Admin: 06/09/18 09:20 Dose: 4 mg Oxycodone HCl (Roxicodone -) 5 mg PO Q8H PRN PRN Reason: PAIN LEVEL 6-10 Last Admin: 06/08/18 10:29 Dose: 5 mg Ranitidine HCl (Zantac -) 150 mg PO DAILY PRN PRN Reason: acid reflux Tacrolimus (Prograf) 3 mg PO BID [facility] Last Admin: 06/10/18 21:50 Dose: 3 mg Terazosin HCl (Hytrin -) 1 mg PO BID [facility] Last Admin: 06/10/18 21:50 Dose: 1 mg - Objective Vital Signs: Vital Signs Temperature 98.7 F 06/11/18 05:00 Pulse Rate 64 06/11/18 05:00 Respiratory Rate 18 06/11/18 05:00 Blood Pressure 137/61 06/11/18 05:00 O2 Sat by Pulse Oximetry (%) 100 06/10/18 09:00 Middle aged man not in distress c/o Left knee pain HEENT: mm moist, no anemia, PERRLA EOMI NECK: No JVd No Bruit CHEST: CTA B/L CVS: s1S2 R no m/g/r ABD: No distention non tender Bs + EXT: Left knee in immobilized. 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 Labs: CBC, BMP 06/11/18 06:25 06/11/18 06:25 INR, PTT INR 1.06 (0.83-1.09) 06/05/18 16:22 Problem List - Problems (1) Syncope Assessment/Plan: Most likely combination of orthostatic with neurocardiogenic secondary to pain , normal EKG no chest pain normal ECHO , fall precautions , evaluted by PT needs PT as out patient. Code(s): R55 - SYNCOPE AND COLLAPSE (2) H/O kidney transplant Assessment/Plan: Non compliant with prograft will f/u Nephrology recommendations. Code(s): Z94.0 - KIDNEY TRANSPLANT STATUS (3) HTN (hypertension) Assessment/Plan: Well controlled cont home meds Code(s): I10 - ESSENTIAL (PRIMARY) HYPERTENSION (4) Lupus Assessment/Plan: Not on any medicatins Code(s): L93.0 - DISCOID LUPUS ERYTHEMATOSUS (5) Anemia Assessment/Plan: chronic stable Code(s): D64.9 - ANEMIA, UNSPECIFIED (6) CKD (chronic kidney disease) Assessment/Plan: post transplant CKD renal function looks like new base line Creat 2.8 non compliant with meds Code(s): N18.9 - CHRONIC KIDNEY DISEASE, UNSPECIFIED Qualifiers: Chronic kidney disease stage: stage 4 (severe) Qualified Code(s): N18.4 - Chronic kidney disease, stage 4 (severe) (7) KAMILLA (acute kidney injury) Assessment/Plan: Top on CKD due to dehydration and non compliance with immuno suppressive f/u Prograft level. Code(s): N17.9 - ACUTE KIDNEY FAILURE, UNSPECIFIED (8) Dehydration Assessment/Plan: resolved Code(s): E86.0 - DEHYDRATION (9) T2DM (type 2 diabetes mellitus) Assessment/Plan: F/U Accucheck resume Home meds optimize glycemic control Code(s): E11.9 - TYPE 2 DIABETES MELLITUS WITHOUT COMPLICATIONS (10) D-dimer, elevated Assessment/Plan: -No chest pain, normal ECHO, no SOB normal O2 sat normal EKG ECHO and LE Doppler , re evaluted by Pulmonary consult deferred VQ scan. Code(s): R79.89 - OTHER SPECIFIED ABNORMAL FINDINGS OF BLOOD CHEMISTRY
[2018-06-11] MEDS ORDERED: PT OWN MED DRAWER 7, Y5N ONE ×2 (09:36→22:20)
[2018-06-11] MEDS: hydrALAZINE HCL 50 MG TABLET (FP) PO SCH ×2 (09:54→22:22)
[2018-06-11] MEDS: METOPROLOL TARTRATE 25 MG TABLET (FP) PO SCH ×2 (09:54→22:22)
[2018-06-11] MEDS: COLCHICINE 0.6 MG TABLET (FP) PO SCH (09:55)
[2018-06-11] MEDS: TACROLIMUS ANHYDROUS 1 MG CAPSULE PO SCH ×2 (09:55→22:24)
[2018-06-11] MEDS: MYCOPHENOLATE MOFETIL 250 MG CAPSULE PO SCH ×2 (09:56→22:23)
[2018-06-11] MEDS: TERAZOSIN HCL 1 MG CAPSULE PO SCH ×2 (09:56→22:23)
[2018-06-11] MEDS: DIVALPROEX SODIUM 500 MG TABLET E.C. PO SCH ×2 (09:57→22:24)
--- NOTE | 2018-06-11 11:29 | PN ---
Progress Note, Physician History of Present Illness: Pt seen and examined at bedside. He is awake and alert. He denies shortness of breath. - Current Medication List Current Medications: Active Medications Acetaminophen (Tylenol -) 650 mg PO Q6H PRN PRN Reason: PAIN Last Admin: 06/11/18 09:54 Dose: 650 mg Atorvastatin Calcium (Lipitor -) 10 mg PO HS [facility] Last Admin: 06/10/18 21:50 Dose: 10 mg Colchicine (Colcrys -) 0.6 mg PO DAILY [facility] Last Admin: 06/11/18 09:55 Dose: 0.6 mg Divalproex Sodium (Depakote -) 500 mg PO BID [facility] Last Admin: 06/11/18 09:57 Dose: 500 mg Docusate Sodium (Colace -) 100 mg PO BID PRN PRN Reason: CONSTIPATION Last Admin: 06/08/18 13:11 Dose: 100 mg Ergocalciferol (Drisdol -) 50,000 unit PO Q30D@1000 [facility] Last Admin: 06/06/18 23:21 Dose: 50,000 unit Heparin Sodium (Porcine) (Heparin -) 5,000 unit SQ TID [facility] Last Admin: 06/11/18 06:07 Dose: 5,000 unit Hydralazine HCl (Apresoline -) 50 mg PO BID [facility] Last Admin: 06/11/18 09:54 Dose: 50 mg Insulin Aspart (Novolog Vial Sliding Scale -) 1 vial SQ ACHS [facility]; Protocol Last Admin: 06/11/18 06:05 Dose: Not Given Metoprolol Tartrate (Lopressor -) 25 mg PO BID [facility] Last Admin: 06/11/18 09:54 Dose: 25 mg Mycophenolate Mofetil (Cellcept -) 750 mg PO BID [facility] Last Admin: 06/11/18 09:56 Dose: 750 mg Non-Formulary Medication (Insulin Aspart [Novolog]) 12 unit SQ ASDIR [facility] Last Admin: 06/06/18 03:15 Dose: 12 unit Ondansetron HCl (Zofran Injection) 4 mg IVPUSH Q4H PRN PRN Reason: NAUSEA AND/OR VOMITING Last Admin: 06/09/18 09:20 Dose: 4 mg Oxycodone HCl (Roxicodone -) 5 mg PO Q8H PRN PRN Reason: PAIN LEVEL 6-10 Last Admin: 06/08/18 10:29 Dose: 5 mg Ranitidine HCl (Zantac -) 150 mg PO DAILY PRN PRN Reason: acid reflux Tacrolimus (Prograf) 3 mg PO BID [facility] Last Admin: 06/11/18 09:55 Dose: 3 mg Terazosin HCl (Hytrin -) 1 mg PO BID [facility] Last Admin: 06/11/18 09:56 Dose: 1 mg - Objective Vital Signs: Vital Signs Temperature 98 F 06/11/18 09:53 Pulse Rate 69 06/11/18 09:53 Respiratory Rate 20 06/11/18 09:53 Blood Pressure 147/60 06/11/18 09:53 O2 Sat by Pulse Oximetry (%) 100 06/10/18 09:00 Constitutional: Yes: Calm Eyes: Yes: Conjunctiva Clear HENT: Yes: Atraumatic Cardiovascular: Yes: S1, S2 Respiratory: Yes: CTA Bilaterally Gastrointestinal: Yes: Soft, Abdomen, Obese Genitourinary: Yes: Other (graft soft and non tender) Musculoskeletal: Yes: Other (knee pain) Edema: LLE: Trace, RLE: Trace Neurological: Yes: Oriented Psychiatric: Yes: Oriented Labs: CBC, BMP 06/11/18 06:25 06/11/18 06:25 INR, PTT INR 1.06 (0.83-1.09) 06/05/18 16:22 Problem List - Problems (1) KAMILLA (acute kidney injury) Code(s): N17.9 - ACUTE KIDNEY FAILURE, UNSPECIFIED (2) CKD (chronic kidney disease) Code(s): N18.9 - CHRONIC KIDNEY DISEASE, UNSPECIFIED Qualifiers: Chronic kidney disease stage: stage 4 (severe) Qualified Code(s): N18.4 - Chronic kidney disease, stage 4 (severe) Assessment/Plan Current Medications Generic Name Dose Route Start Last Admin Trade Name Freq PRN Reason Stop Dose Admin Acetaminophen 650 mg 06/08/18 09:12 06/11/18 09:54 Tylenol - PO 650 mg Q6H PRN Administration PAIN Atorvastatin Calcium 10 mg 06/06/18 22:00 06/10/18 21:50 Lipitor - PO 10 mg HS [facility] Administration Colchicine 0.6 mg 06/08/18 10:00 06/11/18 09:55 Colcrys - PO 0.6 mg DAILY [facility] Administration Divalproex Sodium 500 mg 06/06/18 10:00 06/11/18 09:57 Depakote - PO 500 mg BID [facility] Administration Docusate Sodium 100 mg 06/08/18 09:12 06/08/18 13:11 Colace - PO 100 mg BID PRN Administration CONSTIPATION Ergocalciferol 50,000 unit 06/06/18 20:15 06/06/18 23:21 Drisdol - PO 50,000 unit Q30D@1000 [facility] Administration Heparin Sodium (Porcine) 5,000 unit 06/06/18 06:00 06/11/18 06:07 Heparin - SQ 5,000 unit TID [facility] Administration Hydralazine HCl 50 mg 06/06/18 10:00 06/11/18 09:54 Apresoline - PO 50 mg BID [facility] Administration Insulin Aspart 1 vial 06/06/18 07:00 06/11/18 06:05 Novolog Vial Sliding Scale - SQ Not Given ACHS [facility] Protocol Metoprolol Tartrate 25 mg 06/06/18 10:00 06/11/18 09:54 Lopressor - PO 25 mg BID [facility] Administration Mycophenolate Mofetil 750 mg 06/06/18 10:00 06/11/18 09:56 Cellcept - PO 750 mg BID [facility] Administration Non-Formulary Medication 12 unit 06/06/18 03:00 06/06/18 03:15 Insulin Aspart [Novolog] SQ 12 unit ASDIR [facility] Administration Ondansetron HCl 4 mg 06/09/18 09:03 06/09/18 09:20 Zofran Injection IVPUSH 4 mg Q4H PRN Administration NAUSEA AND/OR VOMITING Oxycodone HCl 5 mg 06/08/18 09:10 06/08/18 10:29 Roxicodone - PO 5 mg Q8H PRN Administration PAIN LEVEL 6-10 Ranitidine HCl 150 mg 06/06/18 02:58 Zantac - PO DAILY PRN acid reflux Tacrolimus 3 mg 06/06/18 10:00 06/11/18 09:55 Prograf PO 3 mg BID [facility] Administration Terazosin HCl 1 mg 06/06/18 10:00 06/11/18 09:56 Hytrin - PO 1 mg BID [facility] Administration Impression 1. CKD 2. kidney transplant 3. DM 4. HTN 5. leg fracture 6. HLD 7. 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
[2018-06-11] MEDS ORDERED: FUROSEMIDE 40 MG TABLET (FP) PO ONE (12:00)
[2018-06-11] MEDS: ATORVASTATIN CA 10 MG TABLET (FP) PO SCH (22:23)
[2018-06-12] MEDS: INSULIN ASPART 12 UNIT SQ SCH ×3 (05:36→13:23)
[2018-06-12] MEDS: ACETAMINOPHEN 325 MG TABLET (FP) PO PRN ×2 (06:32→14:26)
[2018-06-12] MEDS: INSULIN SLIDING SCALE (NOVOLOG) 1 VIAL SQ SCH ×4 (06:33→21:16)
[2018-06-12] MEDS: HEPARIN NA (PORCINE) 5,000 UNITS/ML 1ML VIAL SQ SCH ×3 (06:33→21:14)
[2018-06-12 07:22] LABS: BASO % 0.5 % (0-2.0); EOS % 2.1 % (0-4.5); HEMATOCRIT 27.7 % (35.4-49); HEMOGLOBIN 8.9 GM/dL (11.7-16.9); LYMPH % 31.9 % (8-40); MCH 23.3 pg (25.7-33.7); MCHC 32.1 g/dl (32.0-35.9); MEAN CELL VOLUME 72.7 fl (80-96); MEAN PLT VOLUME 9.4 fl (7.5-11.1); MONO % 7.6 % (3.8-10.2); NEUT % 57.9 % (42.8-82.8); PLATELET COUNT 152 K/MM3 (134-434); RBC 3.81 M/mm3 (4.00-5.60); RDW 17.9 % (11.9-15.9); WHITE BLOOD COUNT 6.6 K/mm3 (4.0-10.0)
[2018-06-12 07:44] LABS: ANION GAP 11 MMOL/L (8-16); BLOOD UREA NITROGEN 29 mg/dL (7-18); CALCIUM 8.8 mg/dL (8.5-10.1); CHLORIDE 110 mmol/L (98-107); CO2 20 mmol/L (21-32); CREATININE 2.8 mg/dL (0.55-1.3); GLUCOSE,RANDOM 160 mg/dL (74-106); POTASSIUM 4.1 mmol/L (3.5-5.1); SODIUM 141 mmol/L (136-145)
[2018-06-12] MEDS ORDERED: PT OWN MED DRAWER 7, Y5N ONE (09:15)
[2018-06-12] MEDS: hydrALAZINE HCL 50 MG TABLET (FP) PO SCH ×2 (09:19→21:13)
[2018-06-12] MEDS: TERAZOSIN HCL 1 MG CAPSULE PO SCH ×2 (09:19→21:14)
[2018-06-12] MEDS: COLCHICINE 0.6 MG TABLET (FP) PO SCH (09:19)
[2018-06-12] MEDS: METOPROLOL TARTRATE 25 MG TABLET (FP) PO SCH ×2 (09:19→21:14)
[2018-06-12] MEDS: DIVALPROEX SODIUM 500 MG TABLET E.C. PO SCH ×2 (09:19→21:14)
[2018-06-12] MEDS: TACROLIMUS ANHYDROUS 1 MG CAPSULE PO SCH ×2 (09:20→21:15)
[2018-06-12] MEDS: MYCOPHENOLATE MOFETIL 250 MG CAPSULE PO SCH ×2 (09:21→21:13)
--- NOTE | 2018-06-12 10:13 | PN ---
Progress Note, Physician Chief Complaint: Comfortable not in acute distress still C/O Left knee pain - Current Medication List Current Medications: Active Medications Acetaminophen (Tylenol -) 650 mg PO Q6H PRN PRN Reason: PAIN Last Admin: 06/12/18 06:32 Dose: 650 mg Atorvastatin Calcium (Lipitor -) 10 mg PO HS [facility] Last Admin: 06/11/18 22:23 Dose: 10 mg Colchicine (Colcrys -) 0.6 mg PO DAILY [facility] Last Admin: 06/12/18 09:19 Dose: 0.6 mg Divalproex Sodium (Depakote -) 500 mg PO BID [facility] Last Admin: 06/12/18 09:19 Dose: 500 mg Docusate Sodium (Colace -) 100 mg PO BID PRN PRN Reason: CONSTIPATION Last Admin: 06/08/18 13:11 Dose: 100 mg Ergocalciferol (Drisdol -) 50,000 unit PO Q30D@1000 [facility] Last Admin: 06/06/18 23:21 Dose: 50,000 unit Heparin Sodium (Porcine) (Heparin -) 5,000 unit SQ TID [facility] Last Admin: 06/12/18 06:33 Dose: 5,000 unit Hydralazine HCl (Apresoline -) 50 mg PO BID [facility] Last Admin: 06/12/18 09:19 Dose: 50 mg Insulin Aspart (Novolog Vial Sliding Scale -) 1 vial SQ ACHS [facility]; Protocol Last Admin: 06/12/18 06:33 Dose: 2 units Metoprolol Tartrate (Lopressor -) 25 mg PO BID [facility] Last Admin: 06/12/18 09:19 Dose: 25 mg Mycophenolate Mofetil (Cellcept -) 750 mg PO BID [facility] Last Admin: 06/12/18 09:21 Dose: 750 mg Ondansetron HCl (Zofran Injection) 4 mg IVPUSH Q4H PRN PRN Reason: NAUSEA AND/OR VOMITING Last Admin: 06/09/18 09:20 Dose: 4 mg Oxycodone HCl (Roxicodone -) 5 mg PO Q8H PRN PRN Reason: PAIN LEVEL 6-10 Last Admin: 06/08/18 10:29 Dose: 5 mg Ranitidine HCl (Zantac -) 150 mg PO DAILY PRN PRN Reason: acid reflux Tacrolimus (Prograf) 3 mg PO BID [facility] Last Admin: 06/12/18 09:20 Dose: 3 mg Terazosin HCl (Hytrin -) 1 mg PO BID [facility] Last Admin: 06/12/18 09:19 Dose: 1 mg - Objective Vital Signs: Vital Signs Temperature 98.4 F 06/12/18 06:00 Pulse Rate 73 06/12/18 06:00 Respiratory Rate 20 06/12/18 06:00 Blood Pressure 147/55 L 06/12/18 06:00 O2 Sat by Pulse Oximetry (%) 98 06/11/18 21:00 Middle aged man not in distress c/o Left knee pain HEENT: mm moist, no anemia, PERRLA EOMI NECK: No JVd No Bruit CHEST: CTA B/L CVS: s1S2 R no m/g/r ABD: No distention non tender Bs + EXT: Left knee in immobilized. 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 Labs: CBC, BMP 06/12/18 06:25 06/12/18 06:25 INR, PTT INR 1.06 (0.83-1.09) 06/05/18 16:22 Problem List - Problems (1) Syncope Assessment/Plan: Most likely combination of orthostatic with neurocardiogenic secondary to pain , normal EKG no chest pain normal ECHO , fall precautions , evaluated by PT needs PT as out patient. Code(s): R55 - SYNCOPE AND COLLAPSE (2) H/O kidney transplant Assessment/Plan: Non compliant with prograft will f/u Nephrology recommendations. Code(s): Z94.0 - KIDNEY TRANSPLANT STATUS (3) HTN (hypertension) Assessment/Plan: Well controlled cont home meds Code(s): I10 - ESSENTIAL (PRIMARY) HYPERTENSION (4) Lupus Assessment/Plan: Not on any medicatins Code(s): L93.0 - DISCOID LUPUS ERYTHEMATOSUS (5) Anemia Assessment/Plan: chronic stable Code(s): D64.9 - ANEMIA, UNSPECIFIED (6) CKD (chronic kidney disease) Assessment/Plan: post transplant CKD renal function looks like new base line Creat 2.8 non compliant with meds Code(s): N18.9 - CHRONIC KIDNEY DISEASE, UNSPECIFIED Qualifiers: Chronic kidney disease stage: stage 4 (severe) Qualified Code(s): N18.4 - Chronic kidney disease, stage 4 (severe) (7) KAMILLA (acute kidney injury) Assessment/Plan: Top on CKD due to dehydration and non compliance with immuno suppressive f/u Prograft level. Code(s): N17.9 - ACUTE KIDNEY FAILURE, UNSPECIFIED (8) Dehydration Assessment/Plan: resolved Code(s): E86.0 - DEHYDRATION (9) T2DM (type 2 diabetes mellitus) Assessment/Plan: F/U Accucheck resume Home meds optimize glycemic control Code(s): E11.9 - TYPE 2 DIABETES MELLITUS WITHOUT COMPLICATIONS (10) D-dimer, elevated Assessment/Plan: -No chest pain, normal ECHO, no SOB normal O2 sat normal EKG ECHO and LE Doppler , re evaluted by Pulmonary consult deferred VQ scan. Code(s): R79.89 - OTHER SPECIFIED ABNORMAL FINDINGS OF BLOOD CHEMISTRY
[2018-06-12] MEDS ORDERED: INSULIN (NOVOLOG) ASPART 100 UNITS/ML 10ML VIAL ONE ×2 (12:04→21:16)
[2018-06-12] MEDS: ONDANSETRON 4 MG/2 ML VIAL IVPUSH PRN (12:08)
[2018-06-12] MEDS: SODIUM CHLORIDE 1,000 ML IV SCH (13:23)
--- NOTE | 2018-06-12 15:45 | PN ---
Progress Note, Physician History of Present Illness: Pt seen and examined at bedside. He complains of weakness and decrease appetite. He denies shortness of breath. - Current Medication List Current Medications: Active Medications Acetaminophen (Tylenol -) 650 mg PO Q6H PRN PRN Reason: PAIN Last Admin: 06/12/18 14:26 Dose: 650 mg Atorvastatin Calcium (Lipitor -) 10 mg PO HS [facility] Last Admin: 06/11/18 22:23 Dose: 10 mg Colchicine (Colcrys -) 0.6 mg PO DAILY [facility] Last Admin: 06/12/18 09:19 Dose: 0.6 mg Divalproex Sodium (Depakote -) 500 mg PO BID [facility] Last Admin: 06/12/18 09:19 Dose: 500 mg Docusate Sodium (Colace -) 100 mg PO BID PRN PRN Reason: CONSTIPATION Last Admin: 06/08/18 13:11 Dose: 100 mg Ergocalciferol (Drisdol -) 50,000 unit PO Q30D@1000 [facility] Last Admin: 06/06/18 23:21 Dose: 50,000 unit Heparin Sodium (Porcine) (Heparin -) 5,000 unit SQ TID [facility] Last Admin: 06/12/18 14:26 Dose: 5,000 unit Hydralazine HCl (Apresoline -) 50 mg PO BID [facility] Last Admin: 06/12/18 09:19 Dose: 50 mg Insulin Aspart (Novolog Vial Sliding Scale -) 1 vial SQ ACHS [facility]; Protocol Last Admin: 06/12/18 12:08 Dose: 2 units Metoprolol Tartrate (Lopressor -) 25 mg PO BID [facility] Last Admin: 06/12/18 09:19 Dose: 25 mg Mycophenolate Mofetil (Cellcept -) 750 mg PO BID [facility] Last Admin: 06/12/18 09:21 Dose: 750 mg Ondansetron HCl (Zofran Injection) 4 mg IVPUSH Q4H PRN PRN Reason: NAUSEA AND/OR VOMITING Last Admin: 06/12/18 12:08 Dose: 4 mg Oxycodone HCl (Roxicodone -) 5 mg PO Q8H PRN PRN Reason: PAIN LEVEL 6-10 Last Admin: 06/08/18 10:29 Dose: 5 mg Ranitidine HCl (Zantac -) 150 mg PO DAILY PRN PRN Reason: acid reflux Last Admin: 06/12/18 12:17 Dose: 150 mg Tacrolimus (Prograf) 3 mg PO BID [facility] Last Admin: 06/12/18 09:20 Dose: 3 mg Terazosin HCl (Hytrin -) 1 mg PO BID [facility] Last Admin: 06/12/18 09:19 Dose: 1 mg - Objective Vital Signs: Vital Signs Temperature 98.2 F 06/12/18 15:28 Pulse Rate 77 06/12/18 15:28 Respiratory Rate 20 06/12/18 15:28 Blood Pressure 136/73 06/12/18 15:28 O2 Sat by Pulse Oximetry (%) 97 06/12/18 09:00 Constitutional: Yes: Calm Eyes: Yes: Conjunctiva Clear HENT: Yes: Atraumatic Cardiovascular: Yes: S1, S2 Respiratory: Yes: CTA Bilaterally Gastrointestinal: Yes: Normal Bowel Sounds, Soft Genitourinary: Yes: Other (renal transplant is soft and non tender) Musculoskeletal: Yes: WNL Edema: Yes Edema: LLE: Trace, RLE: Trace Neurological: Yes: Oriented Psychiatric: Yes: Oriented Labs: CBC, BMP 06/12/18 06:25 06/12/18 06:25 INR, PTT INR 1.06 (0.83-1.09) 06/05/18 16:22 Problem List - Problems (1) KAMILLA (acute kidney injury) Code(s): N17.9 - ACUTE KIDNEY FAILURE, UNSPECIFIED (2) CKD (chronic kidney disease) Code(s): N18.9 - CHRONIC KIDNEY DISEASE, UNSPECIFIED Qualifiers: Chronic kidney disease stage: stage 4 (severe) Qualified Code(s): N18.4 - Chronic kidney disease, stage 4 (severe) Assessment/Plan Current Medications Generic Name Dose Route Start Last Admin Trade Name Freq PRN Reason Stop Dose Admin Acetaminophen 650 mg 06/08/18 09:12 06/12/18 14:26 Tylenol - PO 650 mg Q6H PRN Administration PAIN Atorvastatin Calcium 10 mg 06/06/18 22:00 06/11/18 22:23 Lipitor - PO 10 mg HS [facility] Administration Colchicine 0.6 mg 06/08/18 10:00 06/12/18 09:19 Colcrys - PO 0.6 mg DAILY [facility] Administration Divalproex Sodium 500 mg 06/06/18 10:00 06/12/18 09:19 Depakote - PO 500 mg BID [facility] Administration Docusate Sodium 100 mg 06/08/18 09:12 06/08/18 13:11 Colace - PO 100 mg BID PRN Administration CONSTIPATION Ergocalciferol 50,000 unit 06/06/18 20:15 06/06/18 23:21 Drisdol - PO 50,000 unit Q30D@1000 [facility] Administration Heparin Sodium (Porcine) 5,000 unit 06/06/18 06:00 06/12/18 14:26 Heparin - SQ 5,000 unit TID [facility] Administration Hydralazine HCl 50 mg 06/06/18 10:00 06/12/18 09:19 Apresoline - PO 50 mg BID [facility] Administration Insulin Aspart 1 vial 06/06/18 07:00 06/12/18 12:08 Novolog Vial Sliding Scale - SQ 2 units ACHS [facility] Administration Protocol Metoprolol Tartrate 25 mg 06/06/18 10:00 06/12/18 09:19 Lopressor - PO 25 mg BID [facility] Administration Mycophenolate Mofetil 750 mg 06/06/18 10:00 06/12/18 09:21 Cellcept - PO 750 mg BID [facility] Administration Ondansetron HCl 4 mg 06/09/18 09:03 06/12/18 12:08 Zofran Injection IVPUSH 4 mg Q4H PRN Administration NAUSEA AND/OR VOMITING Oxycodone HCl 5 mg 06/08/18 09:10 06/08/18 10:29 Roxicodone - PO 5 mg Q8H PRN Administration PAIN LEVEL 6-10 Ranitidine HCl 150 mg 06/06/18 02:58 06/12/18 12:17 Zantac - PO 150 mg DAILY PRN Administration acid reflux Tacrolimus 3 mg 06/06/18 10:00 06/12/18 09:20 Prograf PO 3 mg BID [facility] Administration Terazosin HCl 1 mg 06/06/18 10:00 06/12/18 09:19 Hytrin - PO 1 mg BID [facility] Administration Laboratory Tests 06/09/18 06/10/18 23:30 07:00 Tacrolimus Pending Pending Impression 1. CKD 2. kidney transplant 3. DM 4. HTN 5. leg fracture 6. HLD 7. 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
[2018-06-12] MEDS ORDERED: FUROSEMIDE 40 MG TABLET (FP) PO ONE (16:00)
[2018-06-12] MEDS: ATORVASTATIN CA 10 MG TABLET (FP) PO SCH (21:14)
[2018-06-13] MEDS: ACETAMINOPHEN 325 MG TABLET (FP) PO PRN ×2 (03:01→10:28)
[2018-06-13] MEDS: INSULIN SLIDING SCALE (NOVOLOG) 1 VIAL SQ SCH ×2 (06:17→12:07)
[2018-06-13] MEDS: HEPARIN NA (PORCINE) 5,000 UNITS/ML 1ML VIAL SQ SCH (06:41)
[2018-06-13] MEDS ORDERED: PT OWN MED DRAWER 7, Y5N ONE ×2 (09:46→09:48)
[2018-06-13 09:54] VITALS: BP 161/70; PULSE 71; TEMP 97.5
[2018-06-13] MEDS: COLCHICINE 0.6 MG TABLET (FP) PO SCH (09:54)
[2018-06-13] MEDS: hydrALAZINE HCL 50 MG TABLET (FP) PO SCH (09:54)
[2018-06-13] MEDS: METOPROLOL TARTRATE 25 MG TABLET (FP) PO SCH (09:54)
[2018-06-13] MEDS: TERAZOSIN HCL 1 MG CAPSULE PO SCH (09:55)
[2018-06-13] MEDS: DIVALPROEX SODIUM 500 MG TABLET E.C. PO SCH ×2 (09:55→10:03)
[2018-06-13] MEDS: MYCOPHENOLATE MOFETIL 250 MG CAPSULE PO SCH (09:56)
[2018-06-13] MEDS: TACROLIMUS ANHYDROUS 1 MG CAPSULE PO SCH (09:57)
--- NOTE | 2018-06-13 11:41 | DS ---
Physical Examination Vital Signs: Vital Signs Temperature 36.4 C L 06/13/18 09:52 Pulse Rate 71 06/13/18 09:52 Respiratory Rate 18 06/13/18 09:52 Blood Pressure 161/70 06/13/18 09:52 O2 Sat by Pulse Oximetry (%) 98 06/13/18 09:00 Constitutional: Yes: Well Nourished, No Distress, Calm Cardiovascular: Yes: Regular Rate and Rhythm. No: Gallop, Murmur, Rub Respiratory: Yes: Regular, CTA Bilaterally. No: Rales, Rhonchi, Wheezes Gastrointestinal: Yes: Normal Bowel Sounds, Soft. No: Distention, Tenderness Extremities: Yes: WNL Edema: No Labs: CBC, BMP 06/12/18 06:25 06/12/18 06:25 Discharge Summary Reason For Visit: ACUTE KIDNEY INJURY Current Active Problems KAMILLA (acute kidney injury) (Acute) Anemia (Acute) CKD (chronic kidney disease) (Acute) D-dimer, elevated (Acute) Dehydration (Acute) H/O kidney transplant (Acute) HTN (hypertension) (Acute) Lupus (Acute) Syncope (Acute) T2DM (type 2 diabetes mellitus) (Acute) Hospital Course: (1) Syncope Code(s): R55 - SYNCOPE AND COLLAPSE (2) H/O kidney transplant Code(s): Z94.0 - KIDNEY TRANSPLANT STATUS (3) HTN (hypertension) Code(s): I10 - ESSENTIAL (PRIMARY) HYPERTENSION (4) Lupus Code(s): L93.0 - DISCOID LUPUS ERYTHEMATOSUS (5) Anemia Code(s): D64.9 - ANEMIA, UNSPECIFIED (6) CKD (chronic kidney disease) Code(s): N18.9 - CHRONIC KIDNEY DISEASE, UNSPECIFIED Qualifiers: Chronic kidney disease stage: stage 4 (severe) Qualified Code(s): N18.4 - Chronic kidney disease, stage 4 (severe) (7) KAMILLA (acute kidney injury) Code(s): N17.9 - ACUTE KIDNEY FAILURE, UNSPECIFIED (8) Dehydration Code(s): E86.0 - DEHYDRATION (9) T2DM (type 2 diabetes mellitus) Code(s): E11.9 - TYPE 2 DIABETES MELLITUS WITHOUT COMPLICATIONS (10) D-dimer, elevated Code(s): R79.89 - OTHER SPECIFIED ABNORMAL FINDINGS OF BLOOD CHEMISTRY Mr Woo is a very pleasant 62 year old male who came in with syncope secondary to dehydration and KAMILLA on CKD. He was admitted to the hospital. ECHO and carotid dopplers were performed and read reviewed. Because he was dehydrated and had KAMILLA, both his lasix and his ARB were held. He was gently hydrated with IVF and his symptoms resolved. He was seen by PT and was stable. He was noted to have elevated D-dimer, ECHO did not show right heart strain and duplex dopplers were negative. Case d/w pulmonary who stated V/Q scan was not indicated so this was deferred. Currently patient doing well, however considering his difficulty to ambulate at home he is willing to go to a SNF for rehabilitation. He was planned to go to SNF however his discharge was delayed secondary to his tacrolimus level being low. Nephrology evaluated and found the patient was taking this irregularly. He was taking it while here and a second level was ordered to make sure he was therapeutic. His level resulted and it is therapeutic. He is safe for SNF discharge with close follow up with Dr Avila. 32 minutes spent in preparation of this discharge Condition: Stable - Instructions Diet, Activity, Other Instructions: diabetic diet. Up with assistance, further activity per PT at SNF. Referrals: Wolfgang Avila MD [Staff Physician] - Disposition: LONG TERM FACILITY - Home Medications Comprehensive Discharge Medication List: Ambulatory Orders Amlodipine Besylate 10 mg PO DAILY 06/05/18 Colchicine 0.6 mg PO DAILY 06/05/18 Divalproex [Depakote -] 500 mg PO BID 06/05/18 Ergocalciferol (Vitamin D2) [Vitamin D2] 50,000 unit PO DAILY 06/05/18 Furosemide 40 mg PO BID 06/05/18 Hydralazine HCl 50 mg PO BID 06/05/18 Insulin Aspart [Novolog] 12 unit SQ ASDIR 06/05/18 Insulin Degludec [Tresiba Flextouch U-100] 65 unit SQ HS 06/05/18 Lisinopril 5 mg PO DAILY 06/05/18 Magnesium Oxide [Magnesium] 400 mg PO BID 06/05/18 Metoprolol Tartrate 25 mg PO BID 06/05/18 Mycophenolate Mofetil [Cellcept] 750 mg PO BID 06/05/18 Ranitidine HCl [Zantac] 150 mg PO ASDIR PRN 06/05/18 Simvastatin 20 mg PO DAILY 06/05/18 Sodium Bicarbonate - 10 g PO BID 06/05/18 Tacrolimus [Prograf] 3 mg PO BID 06/05/18 Terazosin HCl [Hytrin -] 1 mg PO BID 06/05/18 Docusate Sodium [Colace -] 100 mg PO BID PRN capsule 06/09/18 oxyCODONE HCL [Roxicodone -] 5 mg PO Q8H PRN tablet MDD 15mg 06/09/18
== END 2018-06-13 12:52 | DRG 683 ==
LOC: JER 15:35 → JERBED 20:40 → J5S 06-06 13:36
PROVIDERS: ADMIT Internal Medicine; ATTEND Internal Medicine
DX: N17.9 Acute kidney failure, unspecified (principal); Z94.0 Kidney transplant status; I95.1 Orthostatic hypotension; E86.0 Dehydration; I12.9 Hypertensive chronic kidney disease with stage 1 through stage 4 chronic kidney disease, or unspecified chronic kidney disease; E11.22 Type 2 diabetes mellitus with diabetic chronic kidney disease; N18.4 Chronic kidney disease, stage 4 (severe); E66.9 Obesity, unspecified; Z68.35 Body mass index [BMI] 35.0-35.9, adult; L93.0 Discoid lupus erythematosus; M35.00 Sjogren syndrome, unspecified; D64.9 Anemia, unspecified; E78.5 Hyperlipidemia, unspecified; Z96.651 Presence of right artificial knee joint; S82.091D Other fracture of right patella, subsequent encounter for closed fracture with routine healing; W01.0XXD Fall on same level from slipping, tripping and stumbling without subsequent striking against object, subsequent encounter; Z88.0 Allergy status to penicillin; Z79.4 Long term (current) use of insulin
CPT/HCPCS: 36415; 71045-TC-FY; 76775-TC; 76856-TC; 80048; 80053; 80164; 80197; 81003; 81015; 82436; 82550; 82570; 82962; 83605; 83735; 83880; 84100; 84133; 84300; 84484; 84540; 85025; 85379; 85610; 85730; 93005; 93010; 93306-TC; 93880-TC; 93970-TC; 97116-GP; 97162-GP; 99285-25; J0131; J1644; J7030; J7517